=== PATIENT | female | born 1970 | race Caucasian/White ===

== ENCOUNTER 2020-08-21 05:41 | Emergency (ER) | payer OTHER, SELFPAY ==
--- NOTE | ~2020-08-21 | XR_ITS ---
EXAMINATION: XR BILATERAL ANKLES: 3 VIEWS EACH CLINICAL INFORMATION: Bilateral ankle pain COMPARISON: Right ankle radiographs dated 05/03/2014 TECHNIQUE: AP, oblique and lateral views of each ankle FINDINGS: No acute fracture or dislocation. Ankle mortise is congruent. Talar dome intact. Small bilateral plantar calcaneal and Achilles tendon enthesophytes. No ankle joint effusion. XR/XR ankle LT min 3V IMPRESSION: No acute fracture or dislocation.
--- NOTE | ~2020-08-21 | XR_ITS ---
EXAMINATION: XR BILATERAL ANKLES: 3 VIEWS EACH CLINICAL INFORMATION: Bilateral ankle pain COMPARISON: Right ankle radiographs dated 05/03/2014 TECHNIQUE: AP, oblique and lateral views of each ankle FINDINGS: No acute fracture or dislocation. Ankle mortise is congruent. Talar dome intact. Small bilateral plantar calcaneal and Achilles tendon enthesophytes. No ankle joint effusion. XR/XR ankle RT min 3V IMPRESSION: No acute fracture or dislocation.
[2020-08-21 05:50] VITALS: BP 149/78; PULSE 89; RESP 16; TEMP 37; O2SAT 95; BMI 31.1
--- NOTE | 2020-08-21 06:52 | ED.EXTPRO ---
HPI - Extremity Problem General Chief complaint: Extremity Problem Stated complaint: ankle pain Time Seen by Provider: 08/21/20 06:52 Source: patient and police Mode of arrival: ambulatory Limitations: no limitations History of Present Illness HPI Narrative: 49-year-old female brought in by the police for evaluation of bilateral ankle pain. 49-year-old female under police custody came in for evaluation of ankle pain, no reported trauma to the ankle, patient stated that pain has been there for a while, pain is mostly in the ankle area with some pain at the plantar service bilateral foot. shoot up to both lower legs, no specific reason for patient's symptoms. Patient declined trauma, no fever, no chills. Related Data Allergies Allergy/AdvReac Type Severity Reaction Status Date / Time No Known Allergies Allergy Verified 08/21/20 05:57 Review of Systems Review of Systems: All other systems are reviewed and are negative Constitutional: Reports as per HPI and Reports no additional constitutional complaints Eyes: Reports as per HPI and Reports no additional eye complaints Reports system reviewed and no additional complaints, except as documented Cardiovascular: Reports as per HPI and Reports no additional cardiovascular complaints Respiratory: Reports as per HPI and Reports no additional respiratory complaints Gastrointestinal: Reports as per HPI and Reports no additional gastrointestinal complaints Genitourinary: Reports no additional female genitourinary complaints Musculoskeletal: Reports no additional musculoskeletal complaints Skin/Breast: Reports system reviewed and no additional complaints, except as docu Psychiatric: Reports no additional psychiatric complaints Endocrine: Reports no additional endocrine complaints Hematologic/Lymphatic: Reports no additional hematologic/lymphatic complaints Allergic/Immunologic: Reports no additional allergic/immunologic complaints Reports system reviewed and no additional complaints, except as documented and Reports Abnormal speech present [facility] Social History Social History Advance Directives: No Advance Directives Information Provided: No Patient : No Physical Exam Vital Signs: Vital Signs: Last Vital Signs Temp 98.6 F 08/21/20 05:50 Pulse 89 08/21/20 05:50 Resp 16 08/21/20 05:50 BP 149/78 H 08/21/20 05:50 Pulse Ox 95 08/21/20 05:50 Body Mass Index 31.1 Vital signs have been reviewed as appeared to be correct. Blood pressure normal. Heart rate normal. Respiration rate normal. Temperature normal. Oxygen saturation normal. Appearance: Alert. Oriented X3. No acute distress. Head: Normal external exam. Normocephalic. Atraumatic. No Calderon signs noted. No raccoon eyes noted Eyes: PERRLA. EOMI. Conjunctiva and sclera normal. Eyelids normal. ENT: TM's Normal. Pharynx normal. Uvula midline. Moist mucous membranes. No trismus noted. No drooling noted. No muffled voice noted. Neck: Normal inspection. Neck supple. FROM. No adenopathy. Thyroid Normal. No meningeal signs. No neck mass noted. CVS: Normal heart rate and rhythm. Heart sound normal. No murmurs noted. Pulses normal throughout. Respiratory: No respiratory distress. Painless inspiration. Breath sounds normal. No wheezes/rales/rhonchi noted. Chest nontender. No accessory muscle usage noted or decreased air movement noted. Abdomen: Soft and nontender. Bowel sounds normal in all 4 quadrants. No distention noted. No organomegaly noted. No visible injury noted. Back: No CVA tenderness. Full range of motion noted. Skin: Skin warm and dry. Normal skin color. Normal skin turgor. No rashes/lesions/lacerations noted. Extremities: No lower extremity edema. Extremities exhibit normal range of motion. Extremities nontender. No deformities in particular in both ankles, patient was able to ambulate with steady gait. No pain or tenderness on the plantar fascia Neuro: Oriented X 3. No motor deficit. No sensory deficit. Reflexes normal. Course Course Course Narrative: 49-year-old female came in with nonspecific bilateral ankle pain for few days, no documented trauma or injury to the ankle, negative radiographic study. Patient is able to ambulate in the emergency department. MDM - Extremity (Nontraumatic) Imaging Data Right ankle x-ray: Radiologist's impression: No acute fracture or dislocation. Discharge Plan Discharge Clinical Impression: Ankle pain, chronic Qualifiers: Laterality: bilateral Qualified Code(s): M25.571 - Pain in right ankle and joints of right foot Patient Disposition: Home, Self-Care Instructions: Arthralgia (ED) Referrals: Physician,Unknown [Primary Care Provider] - 2 days Interventions: ED Discharge Assessment Last Done: 08/21/20 07:06 Discharge Date/Time: 08/21/20 07:07
== END 2020-08-21 07:07 | disposition home or self-care (01) ==
PROVIDERS: Emergency Provider Emergency Medicine
DX: M25.571 Pain in right ankle and joints of right foot (principal); M25.572 Pain in left ankle and joints of left foot
CPT/HCPCS: 73610; 99283

== ENCOUNTER 2020-08-22 01:40 | Emergency (ER) | payer OTHER, SELFPAY ==
[2020-08-22] VITALS (8 sets, daily range): BP systolic 123–142; BP diastolic 69–94; PULSE 66–89; RESP 14–18; TEMP 36.2–37.1; O2SAT 96–100; BMI 30.2
--- NOTE | 2020-08-22 02:26 | ED_ITS ---
HPI - General Adult General Chief complaint: General Medical Stated complaint: WITHDRAWAL,USUALLY SNORTS 4 BAGS OF HEROIN S DAY Time Seen by Provider: 08/22/20 02:25 Source: EMS Mode of arrival: EMS Limitations: no limitations History of Present Illness HPI narrative: Patient comes to emergency room reporting opiate withdrawal. Patient states that she snorts 4 bags of heroin daily. However, patient reports that she has not used in 24 hours. Patient complaining of feeling restless. Patient denies abdominal pain, no nausea vomiting. Patient states that she is trying to stop using heroin. Related Data Allergies Allergy/AdvReac Type Severity Reaction Status Date / Time No Known Allergies Allergy Verified 08/21/20 05:57 Review of Systems Review of Systems: Constitutional : No Weight loss, No Fever, No Chills, complaining of general malaise, feels like she is withdrawing from opiates ENT/Mouth : No Hearing loss, No Ear Pain, No Nasal Congestion, No Sinus Pain, No Hoarseness, No sore throat, No Rhinorrhea, No Swallowing Difficulty Eyes: No Eye Pain, No Swelling, No Redness, No Foreign Body, No Discharge, No Vision Changes Cardiovascular : No Chest Pain, No SOB, No Dyspnea on Exertion, No Orthopnea, No Edema, No Palpitations Respiratory : No Cough, No Sputum, No Wheezing, No Smoke Exposure, No Dyspnea Gastrointestinal : No Nausea, No Vomiting, No Diarrhea, No Constipation, No abdominal Pain, No Hematochezia, No Melena Genitourinary : no irregular bleeding, No Dysuria, No Urinary Frequency, No Hematuria, No Urinary Incontinence, No Urgency, No Flank Pain, No Urinary Flow Changes, No Hesitancy Musculoskeletal : No joint pain, No Myalgias, No Joint Swelling Skin : No Skin Lesions, No rash Neuro : No Weakness, No Numbness, No Paresthesias, No Loss of Consciousness, No Dizziness, No Headache Psych : No Anxiety/Panic, No Depression, No SI/HI/AH/VH, No Social Issues, Heme/Lymph: No Bruising, No Bleeding,No Lymphadenopathy Endocrine : No Polyuria, No Polydipsia, No Temperature Intolerance PMF Past Medical History Medical History (Updated 08/22/20 @ 06:35 by Allison Suárez MD) Substance abuse Social History Social History Advance Directives: No Advance Directives Information Provided: No Patient : No Physical Exam Vital Signs: Vital Signs: Last Vital Signs Temp 98.6 F 08/22/20 01:53 Pulse 72 08/22/20 02:35 Resp 16 08/22/20 03:38 BP 128/84 08/22/20 02:35 Pulse Ox 96 08/22/20 01:53 Body Mass Index 30.2 Appearance: Alert. Oriented X3. Looks uncomfortable Eyes: Pupils equal, round and reactive to light. ENT: Pharynx normal. Neck: Normal inspection. Neck supple. No lymph nodes noted. No crepitus CVS: Normal heart rate and rhythm. Pulses normal. Normal S1 and S2 Respiratory: No respiratory distress. Breath sounds normal. No Wheezing. No rales Abdomen: Soft and nontender. No rigidity. No distention. good BS x4 Skin: Skin warm and dry. Patient has a 5 cm x 5 cm old scab ulcer in the right forearm. Extremities: No lower extremity edema. No lower extremity edema. No Lacerations. No Rash Neuro: Oriented X 3. No motor deficit. No sensory deficit. Moving all extermities. No slurred speech. Course Course Course Narrative: I discussed with the patient if she is interested in using Suboxone so I could start her here. Patient states that she has tried in the past, did not work, she has no interest at this time. I discussed the large ulcer in the patient's forearm, states that it has been present for over 2 years. States she has not been seen by the wound clinic in approximately 6 months. At this time, infection is not suspected, however she would benefit from wound care. Patient had a very rough 9, constantly screaming. Patient was given trazodone and 4 mg of Ativan throughout the night. Now resting comfortably. Patient will likely benefit from a cross country and track and field coach evaluation. Sign-out given to Dr. Guerrero Medical Decision Making Lab Data Labs: Lab Results 08/22/20 08/22/20 08/22/20 Range/Units 03:01 03:01 03:01 Urine Color YELLOW Urine Appearance CLOUDY Urine pH 8.0 (5.0-8.0) Ur Specific [place] 1.025 (1.005-1.025) Urine Protein NEG (NEG-TRACE) MG/DL Urine Glucose (UA) NEG (NEG) MG/DL Urine Ketones 15 (NEG) MG/DL Urine Blood NEG (NEG) Urine Nitrite NEG (NEG) Ur Leukocyte Esterase NEG (NEG) Urine Test NEGATIVE (NEGATIVE) Urine Opiates Screen POSITIVE H (Not Detect) Ur Barbiturates Screen Not Detected (Not Detect) Ur Phencyclidine Scrn Not Detected (Not Detect) Ur Amphetamines Screen Not Detected (Not Detect) U Benzodiazepines Scrn Not Detected (Not Detect) Urine Cocaine Screen POSITIVE H (Not Detect) U Marijuana (THC) Screen Not Detected (Not Detect) Discharge Plan Discharge Clinical Impression: Opiate withdrawal Arm ulcer Qualifiers: Non-pressure ulcer stage: unspecified non-pressure ulcer stage Qualified Code(s): L98.499 - Non-pressure chronic ulcer of skin of other sites with unspecified severity Referrals: Abbie Duncan MD [Physician] - 2 days (Unhealed right forearm ulcer)
[2020-08-22] MEDS: cloNIDine HCL 0.2 MG TABLET PO (02:35)
[2020-08-22] MEDS: Loperamide HCl 2 MG CAPSULE 4 MG PO (02:35)
[2020-08-22] MEDS: LORazepam 1 MG TABLET 2 MG PO ×2 (02:35→03:36)
--- NOTE | 2020-08-22 02:37 | PC.NURSE ---
pt medicated per MAR. Pt continues to be restless and thrash around in the bed. Yelling out is becoming more constant/consisitant. pt reports she cannot get comfortable and inquired as to how long it will take before the medication begins to work; pt aware of the 30minutes time frame and she verbalized understanding. Pillow given for comfort.
[2020-08-22 03:08] LABS: Glucose Urine UA NEG (NEG); Leukocyte Esterase Urine NEG (NEG); Nitrite Urine NEG (NEG); Specific Gravity - Urine 1.025 (1.005-1.025); Urine Blood NEG (NEG); Urine Ketones 15 MG/DL (NEG); Urine Protein NEG (NEG-TRACE)
[2020-08-22 03:10] LABS: Appearance Urine CLOUDY; Color Urine YELLOW
[2020-08-22 03:11] LABS: UPreg QC Valid YES; Urine Pregnancy NEGATIVE (NEGATIVE)
[2020-08-22] MEDS: traZODone HCL 100 MG TABLET PO (03:36)
[2020-08-22 03:38] LABS: Amphetamine Screen Urine Not Detected (Not Detect); Barbiturates, Urine Not Detected (Not Detect); Benzodiazepines Screen Urine Not Detected (Not Detect); Cannabinoid Screen Urine Not Detected (Not Detect); Cocaine Screen Urine POSITIVE (Not Detect); Opiate Screen Urine POSITIVE (Not Detect); Phencyclidine Screen Urine Not Detected (Not Detect)
--- NOTE | 2020-08-22 11:01 | MHC.RECOVSUP ---
Recovery Support note: Patient is a 49 year old [place]i speaking female who presented to [facility] ED due to opioid withdrawal symptoms. Per EMR, patient was offered Suboxone and declined, stating that she has tried it before but she is not interested. This financial underwriter has attempted to meet with patient on multiple occasions throughout the morning. Patient appears comfortable and has been sleeping heavily, difficult to arouse. This financial underwriter or a Sole Conforming Machine Operator will check in with patient when she is more awake to determine if patient is interested in any resources or supports.
--- NOTE | 2020-08-22 12:31 | MHC.RECOVSUP ---
? Reason for consult:Continuity o Current location: ED [address] o Identified substance use concern:Heroin - Support ? Intervention: o Community resources provided o Harm reduction discussion ? Plan: o Referral to [facility] o Bed search in progress to o Follow up tomorrow o Patient awaiting crisis evaluation o Patient to follow up with [facility] after discharge ? Additional information: Pt. still asleep. Will continue to try to speak with patient till end of shift.
--- NOTE | 2020-08-22 14:15 | MHC.RECOVSUP ---
? Reason for consult:Continuity of care o Current location: [facility] o Identified substance use concern: Heroin - Withdrawal - Seeking ATS (detox) - Support ? Intervention: o ATS bed search started/completed/in process o Community resources provided o Harm reduction discussion ? Plan: o Bed search in progress to o Patient to follow up with [facility] after discharge ? Additional information: Pt. willing to go anywhere for detox and prison recovery. patient referred to [facility]. She's been put on the waiting list on the latter. Nurse Mariscal notified.
--- NOTE | 2020-08-22 14:26 | PC.NURSE ---
pt ate 75% of lunch, pt had refused breakfast, slept most of the morning. resp even and unlabored.
--- NOTE | 2020-08-22 14:27 | PC.NURSE ---
plan for detox per care team., pt aware of plan of care.
--- NOTE | 2020-08-22 14:35 | MHC.RECOVSUP ---
Recovery Support note: Patient met with [employer] Pot[employer] Arranger and expressed interest in going to detox. This automobile and property underwriter will conduct a detox bedsearch for patient.
== END 2020-08-22 18:20 | disposition home or self-care (01) ==
PROVIDERS: Emergency Provider Emergency Medicine
DX: F11.13 Opioid abuse with withdrawal (principal); F19.10 Other psychoactive substance abuse, uncomplicated; R45.1 Restlessness and agitation; L98.499 Non-pressure chronic ulcer of skin of other sites with unspecified severity
CPT/HCPCS: 80307; 81003; 81025; 99284; 99285

== ENCOUNTER 2020-08-27 11:46 | Inpatient (IN) | payer OTHER, SELFPAY ==
[2020-08-27] VITALS (9 sets, daily range): BP systolic 104–139; BP diastolic 61–91; PULSE 77–108; RESP 16–18; TEMP 36–36.9; O2SAT 96–100; BMI 29.2
--- NOTE | ~2020-08-27 | CT_ITS ---
EXAMINATION: CONTRAST-ENHANCED CT OF THE CHEST; CONTRAST-ENHANCED CT OF THE ABDOMEN AND PELVIS INDICATION: Cough, leukocytosis, abdominal pain, IVDA COMPARISON: None TECHNIQUE: 85 mL Omnipaque 350 IV contrast was utilized. Multidetector helical imaging was performed through the chest, abdomen, and pelvis. Coronal and sagittal reformatted images were created at the technologist workstation. DLP: 1252 mGy-cm DOSE LOWERING TECHNIQUES: This CT examination was performed using dose optimization techniques as appropriate, variously including the following: - Automated exposure control - Adjustment of mA and/or kV according to patient size (this includes techniques or standardized protocols for targeted exams were dose is matched to indication/reason for exam; i.e. extremities or head) - Use of iterative reconstruction technique FINDINGS: Chest: Limited assessment of the lung parenchyma due to respiratory motion artifact. No appreciable consolidation. No pneumothorax or pleural effusion. Small left thyroid lobe nodule is noted. There are subcentimeter mediastinal lymph nodes within the range of normal variation. Cardiac size is within normal limits; no pericardial effusion. The aorta is unremarkable. There is a mildly prominent right axillary lymph node, nonspecific. Abdomen/Pelvis: Limited evaluation due to patient motion artifact. The liver is homogeneous in attenuation without intrahepatic biliary ductal dilatation. Patient is status post cholecystectomy. The spleen, pancreas, and adrenal glands are within normal limits. Bilateral nephrograms are symmetric. No hydronephrosis. No obstructing renal or ureteral calculi are present. Tiny mid to lower right renal calculi noted. The urinary bladder is unremarkable. The uterus and adnexa are unremarkable. The small and large bowel are unremarkable without evidence of obstruction or pericolonic inflammatory change. Appendix appears nondilated. No free fluid or free air is identified. The vascular structures are unremarkable. No retroperitoneal or pelvic lymphadenopathy is seen. There are degenerative endplate changes in the upper lumbar spine. CT/CT abdomen pelvis w con IMPRESSION: 1. Suboptimal assessment due to patient motion artifact. No definite acute findings identified in the chest, abdomen, or pelvis. 2. Mildly prominent right axillary lymph node, nonspecific. Correlation with screening mammography is recommended. 3. Tiny right renal calculi without hydronephrosis.
--- NOTE | ~2020-08-27 | CT_ITS ---
EXAMINATION: CT HEAD WITHOUT CONTRAST CLINICAL INFORMATION: Altered mental status, leukocytosis COMPARISON: None TECHNIQUE: Contiguous axial imaging was performed from the skull base to vertex without intravenous administration of contrast. This CT examination was performed using dose optimization techniques as appropriate, variously including the following: *Automated exposure control *Adjustment of mA and/or kV according to patient size (this includes techniques or standardized protocols for targeted exams where dose is matched to indication/reason for exam; i.e. extremities or head) *Use of iterative reconstruction technique DLP: 1309 mGy-cm FINDINGS: There is no evidence of acute intracranial hemorrhage or territorial infarction. No abnormal mass effect or midline shift is seen. Seaman to white matter differentiation is well preserved. No extra-axial fluid collections are identified. The ventricles are normal in size. Cystic region along the right cerebellopontine angle may represent an epidermoid cyst or arachnoid cyst. The osseous structures and soft tissues are normal. The mastoid air cells and visualized portions of the paranasal sinuses are well aerated. CT/CT head/brain wo con IMPRESSION: No acute intracranial pathology.
--- NOTE | ~2020-08-27 | XR_ITS ---
EXAMINATION: XR CHEST CLINICAL INFORMATION: Shortness of breath. Leukocytosis. COMPARISON: None TECHNIQUE: Frontal view of the chest was obtained. FINDINGS: No significant abnormality is noted involving the heart, lungs, mediastinum, bony thorax or soft tissues. XR/XR chest 1V IMPRESSION: Unremarkable examination.
--- NOTE | 2020-08-27 12:13 | PC.NURSE ---
patient reports she is interested in detox, no oil recovery operator here at this time but Bailee from [facility] team is aware and will work on detox services.
--- NOTE | 2020-08-27 12:17 | ED_ITS ---
HPI - General Adult General Chief complaint: General Medical Stated complaint: heroin withdrawal Time Seen by Provider: 08/27/20 12:16 Source: patient and EMS Mode of arrival: EMS Limitations: no limitations History of Present Illness HPI narrative: 49 y/o female with history of polysubstance abuse, including heroin and crack, previously on Methadone who presents to the ER via EMS with reports of heroin withdrawal. She reports using 12/2 bundle per day. Last use was 12pm yesterday. She comes in today reporting feeling awful. She feels like she is going to . She states this is the worst withdrawal she has ever experienced. She has numbness in her hands, abdominal pain, chest pain, shortness of breath, anxiety. She reports last taking her Methadone a few weeks ago. Her car broke and she has not been able to get to the clinic so she started using again. She snorts her heroin. She was seen here on 08/22 for withdrawal symptoms as well. She wanted to go to detox but there were no beds available so she was discharged with plan to go [facility]. She denies ever going. complaint: heroin withdrawal Onset (ago): day(s) Location: head, chest and abdomen Radiation: non-radiation Severity: severe Quality: aching Pain Consistency: constant Relieving factors: none Exacerbating factors: none Associated symptoms: chest pain, headaches, loss of appetite, nausea/vomiting, shortness of breath and weakness Treatments prior to arrival: none Related Data Allergies Allergy/AdvReac Type Severity Reaction Status Date / Time No Known Allergies Allergy Verified 08/21/20 05:57 Review of Systems Review of Systems: Constitutional: No Fever, No Chills ENT/Mouth: No sore throat, No Rhinorrhea, No Swallowing Difficulty Eyes: No Eye Pain, No Swelling, No Redness Cardiovascular: + Chest Pain, + SOB, No Orthopnea, No Edema Respiratory: No Cough, No Sputum, No Wheezing, No dyspnea Gastrointestinal: + Nausea, No Vomiting, No Diarrhea, + abdominal Pain, No Hematochezia, No Melena Genitourinary: No Dysuria, No Urinary Frequency, No Hematuria Musculoskeletal: + joint pain, + Myalgias Skin: No Skin Lesions, No rash Neuro: + Weakness, + Numbness, No Dizziness, + Headache Psych: + Anxiety/Panic, + Depression Heme/Lymph: No Bruising, No Lymphadenopathy Endocrine: No Polyuria, No Polydipsia PMF Past Medical History Attestation statement: The following information was validated with the patient. Medical History Substance abuse Social History Social History Alcohol intake: never Smoking Status: Current some day smoker Smoked in Last 30 Days: Yes Use of substances other than those prescribed or required for medical reasons: Yes Substance Use Type: Crack/Cocaine and Heroin Substance Use Frequency: Chronic Longstanding Last Used Substance: Days (ago) Any prior treatment program specific to substance use: Yes Advance Directives: No Advance Directives Information Provided: Yes Patient : No Physical Exam Vital Signs: Vital Signs: Last Vital Signs Temp 97.9 F 08/27/20 20:00 Pulse 88 08/27/20 20:00 Resp 16 08/27/20 20:00 BP 130/84 08/27/20 20:00 Pulse Ox 96 08/27/20 20:00 Body Mass Index 29.2 Appearance: Alert. Oriented X2. Restless in bed, shaking around. Eyes: Pupils equal, round and reactive to light. ENT: Pharynx normal. Neck: Normal inspection. Neck supple. CVS: Tachycardic, regular rhythm. Pulses normal. No appreciable murmur Respiratory: No respiratory distress. Breath sounds normal. Abdomen: Soft and nontender. +BS x4 Skin: Skin warm and dry. Normal skin color. Normal skin turgor. No rashes. Extremities: No lower extremity edema. LUE with chronic skin ulcer, pink healthy tissue at margins without tenderness, warmth or drainage. bilateral hands with multiple track delgadillo in various stages of healing. Neuro: Oriented X 3 (person, place, situation, confused to specific date), moves all extremities, restless, no focal deficits. answers questions appropriately Course Course Course Narrative: 49 y/o female with longstanding polysubstance abuse presenting with heroin withdrawal, last use 24 hours ago. Unable to confirm her prior Methadone dosing, clinic is closed. She is agreeable to starting Suboxone. She is interested in detox. She has not had basic lab workup in 2 years. Given her myriad of complaints will get basic workup and discuss referrals to detox with value stream coach. Reevaluation(s) Reevaluation #1: Took multiple attempts to draw blood, poor access and patient not cooperating - labs returned with WBC 25.9K w/ left shift & K 2.9. UA negative. COVID negative. Will get CXR, lactic acid and blood cultures. Patient remains afebrile. She is altered with intermittent shouting out (received subox one, ativan, clonidine and hydroxazine for withdrawal sxs) but is conversant and answers questions appropriately. No nuchal rigidity. Doubt meningitis or encephalitis, however if no source is identified may need to proceed with LP for further investigation. Will panscan to look for source of infection. Repeat WBC to verify not a lab error. Reevaluation #2: Lactic acid 3.0. Unable to establish IV access despite multiple attempts by multiple providers. She is hemodynamically stable and afebrile. She is tolerating PO fluids, will continue to encourage PO hydration and repeat lactic acid. No source is identified at this time. CT scans are pending, unable to be completed due to agitation and being uncooperative. IM haldol ordered. IV access being attempted again. Signed out to Dr. Villeda who will f/u repeat labs & CT scans. IVF ordered. Medical Decision Making Lab Data Result diagrams: 08/27/20 15:20 08/27/20 15:20 Labs: Lab Results 08/27/20 08/27/20 08/27/20 Range/Units 13:23 13:23 13:23 WBC (4.8-10.8) X10*3/uL RBC (4.20-5.50) X10*6/uL Hgb (12.0-16.0) g/dl Hct (37-47) % MCV (80-98) fL MCH (27.0-33.0) pg MCHC (31.0-35.0) g/dl RDW (11.0-16.0) % Plt Count (160-400) X10*3/uL MPV (9.4-12.3) fL Immature Gran % (Auto) (0.0-0.4) % Neut % (Auto) (45-73) % Lymph % (Auto) (20-40) % [place] % (Auto) (2-11) % Eos % (Auto) (0-4) % Baso % (Auto) (0-2) % Lymph # (Auto) (1.2-4.9) X10*3/uL [place] # (Auto) (0.1-1.2) X10*3/uL Eos # (Auto) (0.0-0.4) X10*3/uL Baso # (Auto) (0.0-0.2) X10*3/uL Abs Immat Gran (auto) (0.00-0.03) X10*3/uL Absolute Neuts (auto) (2.0-8.3) X10*3/uL Absolute Nucleated RBC (0.0-0.012) X10*3/uL Nucleated RBC % (auto) (0.0-0.2) /100WBC Smear Tech's Comments Hold Blue Top Sodium (135-145) mmol/L Potassium (3.3-5.1) mmol/L Chloride (96-108) mmol/L Carbon Dioxide (22-29) mmol/L Anion Gap (12-20) BUN (9-16) mg/dL Creatinine (0.5-1.4) mg/dL Estim Creat Clear Calc Estimated GFR Random Glucose (60-115) mg/dL Lactic Acid (0.5-2.0) mmol/L Calcium (8.4-10.2) mg/dL Magnesium (1.6-2.6) mg/dL Total Bilirubin (0.0-1.0) mg/dL Direct Bilirubin (0.0-0.5) mg/dL AST (5-31) U/L ALT (0-31) U/L Alkaline Phosphatase (39-117) U/L Total Protein (6.5-8.0) g/dL Albumin (3.5-5.0) g/dL Urine Color YELLOW Urine Appearance CLEAR Urine pH 7.0 (5.0-8.0) Ur Specific [place] 1.010 (1.005-1.025) Urine Protein 1+ H (NEG-TRACE) MG/DL Urine Glucose (UA) NEG (NEG) MG/DL Urine Ketones NEG (NEG) MG/DL Urine Blood NEG (NEG) Urine Nitrite NEG (NEG) Ur Leukocyte Esterase NEG (NEG) Urine RBC 0-2 (0) /HPF Urine WBC 0-2 (0-4) /HPF Ur Squamous Epith Cells 1+ /LPF Ur Renal Epithelial Cell 1+ /LPF Urine Bacteria NONE /LPF Urine Opiates Screen POSITIVE H (Not Detect) Ur Barbiturates Screen Not Detected (Not Detect) Ur Phencyclidine Scrn Not Detected (Not Detect) Ur Amphetamines Screen Not Detected (Not Detect) U Benzodiazepines Scrn Not Detected (Not Detect) Urine Cocaine Screen POSITIVE H (Not Detect) U Marijuana (THC) Screen Not Detected (Not Detect) Ethyl Alcohol mg/dL COVID-19 ([facility]ARJIT) Negative (Negative) COVID-19 Clin Com See Note 08/27/20 08/27/20 08/27/20 Range/Units 15:20 15:20 15:20 WBC 25.9 H (4.8-10.8) X10*3/uL RBC 4.00 L (4.20-5.50) X10*6/uL Hgb 10.1 L (12.0-16.0) g/dl Hct 32.2 L (37-47) % MCV 80.5 (80-98) fL MCH 25.3 L (27.0-33.0) pg MCHC 31.4 (31.0-35.0) g/dl RDW 16.1 H (11.0-16.0) % Plt Count 330 (160-400) X10*3/uL MPV 10.2 (9.4-12.3) fL Immature Gran % (Auto) 0.5 H (0.0-0.4) % Neut % (Auto) 96.9 H (45-73) % Lymph % (Auto) 1.4 L (20-40) % [place] % (Auto) 1.0 L (2-11) % Eos % (Auto) 0.0 (0-4) % Baso % (Auto) 0.2 (0-2) % Lymph # (Auto) 0.4 L (1.2-4.9) X10*3/uL [place] # (Auto) 0.3 (0.1-1.2) X10*3/uL Eos # (Auto) 0.0 (0.0-0.4) X10*3/uL Baso # (Auto) 0.0 (0.0-0.2) X10*3/uL Abs Immat Gran (auto) 0.13 H (0.00-0.03) X10*3/uL Absolute Neuts (auto) 25.1 H (2.0-8.3) X10*3/uL Absolute Nucleated RBC 0.000 (0.0-0.012) X10*3/uL Nucleated RBC % (auto) 0.0 (0.0-0.2) /100WBC Smear Tech's Comments VERIFIED Hold Blue Top SEE NOTE Sodium 140 (135-145) mmol/L Potassium 2.9 L (3.3-5.1) mmol/L Chloride 106 (96-108) mmol/L Carbon Dioxide 22 (22-29) mmol/L Anion Gap 15 (12-20) BUN 9 (9-16) mg/dL Creatinine 0.73 (0.5-1.4) mg/dL Estim Creat Clear Calc 85.4 Estimated GFR > 60 Random Glucose 116 H (60-115) mg/dL Lactic Acid (0.5-2.0) mmol/L Calcium 8.4 (8.4-10.2) mg/dL Magnesium 1.7 (1.6-2.6) mg/dL Total Bilirubin 0.8 (0.0-1.0) mg/dL Direct Bilirubin 0.3 (0.0-0.5) mg/dL AST 97 H (5-31) U/L ALT 48 H (0-31) U/L Alkaline Phosphatase 126 H (39-117) U/L Total Protein 6.7 (6.5-8.0) g/dL Albumin 3.4 L (3.5-5.0) g/dL Urine Color Urine Appearance Urine pH (5.0-8.0) Ur Specific [place] (1.005-1.025) Urine Protein (NEG-TRACE) MG/DL Urine Glucose (UA) (NEG) MG/DL Urine Ketones (NEG) MG/DL Urine Blood (NEG) Urine Nitrite (NEG) Ur Leukocyte Esterase (NEG) Urine RBC (0) /HPF Urine WBC (0-4) /HPF Ur Squamous Epith Cells /LPF Ur Renal Epithelial Cell /LPF Urine Bacteria /LPF Urine Opiates Screen (Not Detect) Ur Barbiturates Screen (Not Detect) Ur Phencyclidine Scrn (Not Detect) Ur Amphetamines Screen (Not Detect) U Benzodiazepines Scrn (Not Detect) Urine Cocaine Screen (Not Detect) U Marijuana (THC) Screen (Not Detect) Ethyl Alcohol mg/dL COVID-19 ([facility]ARJIT) (Negative) COVID-19 Clin Com 08/27/20 08/27/20 Range/Units 15:20 19:10 WBC (4.8-10.8) X10*3/uL RBC (4.20-5.50) X10*6/uL Hgb (12.0-16.0) g/dl Hct (37-47) % MCV (80-98) fL MCH (27.0-33.0) pg MCHC (31.0-35.0) g/dl RDW (11.0-16.0) % Plt Count (160-400) X10*3/uL MPV (9.4-12.3) fL Immature Gran % (Auto) (0.0-0.4) % Neut % (Auto) (45-73) % Lymph % (Auto) (20-40) % [place] % (Auto) (2-11) % Eos % (Auto) (0-4) % Baso % (Auto) (0-2) % Lymph # (Auto) (1.2-4.9) X10*3/uL [place] # (Auto) (0.1-1.2) X10*3/uL Eos # (Auto) (0.0-0.4) X10*3/uL Baso # (Auto) (0.0-0.2) X10*3/uL Abs Immat Gran (auto) (0.00-0.03) X10*3/uL Absolute Neuts (auto) (2.0-8.3) X10*3/uL Absolute Nucleated RBC (0.0-0.012) X10*3/uL Nucleated RBC % (auto) (0.0-0.2) /100WBC Smear Tech's Comments Hold Blue Top Sodium (135-145) mmol/L Potassium (3.3-5.1) mmol/L Chloride (96-108) mmol/L Carbon Dioxide (22-29) mmol/L Anion Gap (12-20) BUN (9-16) mg/dL Creatinine (0.5-1.4) mg/dL Estim Creat Clear Calc Estimated GFR Random Glucose (60-115) mg/dL Lactic Acid 3.0 H* (0.5-2.0) mmol/L Calcium (8.4-10.2) mg/dL Magnesium (1.6-2.6) mg/dL Total Bilirubin (0.0-1.0) mg/dL Direct Bilirubin (0.0-0.5) mg/dL AST (5-31) U/L ALT (0-31) U/L Alkaline Phosphatase (39-117) U/L Total Protein (6.5-8.0) g/dL Albumin (3.5-5.0) g/dL Urine Color Urine Appearance Urine pH (5.0-8.0) Ur Specific [place] (1.005-1.025) Urine Protein (NEG-TRACE) MG/DL Urine Glucose (UA) (NEG) MG/DL Urine Ketones (NEG) MG/DL Urine Blood (NEG) Urine Nitrite (NEG) Ur Leukocyte Esterase (NEG) Urine RBC (0) /HPF Urine WBC (0-4) /HPF Ur Squamous Epith Cells /LPF Ur Renal Epithelial Cell /LPF Urine Bacteria /LPF Urine Opiates Screen (Not Detect) Ur Barbiturates Screen (Not Detect) Ur Phencyclidine Scrn (Not Detect) Ur Amphetamines Screen (Not Detect) U Benzodiazepines Scrn (Not Detect) Urine Cocaine Screen (Not Detect) U Marijuana (THC) Screen (Not Detect) Ethyl Alcohol < 10 mg/dL COVID-19 ([facility]ARJIT) (Negative) COVID-19 Clin Com ECG Data Attestation: I personally reviewed and interpreted this ECG as follows: Interpretation: normal sinus rhythm, nonspecific ST & T wave abnormality. normal IA interval, Normal QTc
[2020-08-27] MEDS: Buprenorphine/Naloxone 4/1 mg FILM 1 FILM SUBLINGUAL (12:25)
--- NOTE | 2020-08-27 12:34 | ECG_ITS ---
Test Reason : CHEST PAIN Blood Pressure : / mmHG Vent. Rate : 089 BPM Atrial Rate : 089 BPM P-R Int : 112 ms QRS Dur : 082 ms QT Int : 334 ms P-R-T Axes : 035 045 003 degrees QTc Int : 406 ms Normal sinus rhythm Nonspecific ST and T wave abnormality Abnormal ECG No previous ECGs available Referred By: Nallely Umanzor Electronically Signed By:JEAN CARLOS GARCIA MD
[2020-08-27] MEDS: LORazepam 1 MG TABLET 2 MG PO ×2 (13:32→17:50)
[2020-08-27] MEDS: cloNIDine HCL 0.1 MG TABLET PO ×2 (13:32→14:41)
[2020-08-27 13:36] LABS: Glucose Urine UA NEG (NEG); Leukocyte Esterase Urine NEG (NEG); Nitrite Urine NEG (NEG); Urine Blood NEG (NEG); Urine Ketones NEG (NEG); Urine Protein 1+ MG/DL (NEG-TRACE)
[2020-08-27 13:38] LABS: Appearance Urine CLEAR; Color Urine YELLOW
[2020-08-27 13:43] LABS: RBC Urine 0-2 /HPF (0); Renal Epithelial Cells Urine 1+ /LPF; Squamous Epithelial Cell Urine 1+ /LPF; WBC Urine 0-2 /HPF (0-4)
[2020-08-27 13:47] LABS: COVID-19 Test Negative (Negative); IDNOW Serial# 08D9AD1C
--- NOTE | 2020-08-27 13:50 | PC.NURSE ---
patient moving too much in bed at this time for tech to draw blood. patient medicated, will reassess for lab draws.
[2020-08-27 14:00] LABS: Amphetamine Screen Urine Not Detected (Not Detect); Barbiturates, Urine Not Detected (Not Detect); Benzodiazepines Screen Urine Not Detected (Not Detect); Cannabinoid Screen Urine Not Detected (Not Detect); Cocaine Screen Urine POSITIVE (Not Detect); Opiate Screen Urine POSITIVE (Not Detect); Phencyclidine Screen Urine Not Detected (Not Detect)
--- NOTE | 2020-08-27 14:43 | MHC.CARE ---
Pt interested in detox. Pt referred to detoxs. Placement pending.
[2020-08-27] MEDS: hydrOXYzine HCL 50 MG TABLET PO (14:54)
[2020-08-27 15:29] LABS: Basophils Percent Auto 0.2 % (0-2); Hematocrit 32.2 % (37-47); Hemoglobin 10.1 g/dl (12.0-16.0); Imm Gran Abs Auto 0.13 X10*3/uL (0.00-0.03); Imm Gran Pct Auto 0.5 % (0.0-0.4); Lymphocytes Absolute Auto 0.4 X10*3/uL (1.2-4.9); Lymphocytes Percent Auto 1.4 % (20-40); MANUAL DIFF FLAG SCAN; Mean Corpuscular HGB Conc 31.4 g/dl (31.0-35.0); Mean Corpuscular Hemoglobin 25.3 pg (27.0-33.0); Mean Corpuscular Volume 80.5 fL (80-98); Mean Platelet Volume 10.2 fL (9.4-12.3); Monocytes Absolute Auto 0.3 X10*3/uL (0.1-1.2); Neutrophils Absolute Auto 25.1 X10*3/uL (2.0-8.3); Neutrophils Percent Auto 96.9 % (45-73); Platelet Count 330 X10*3/uL (160-400); Red Cell Distribution Width 16.1 % (11.0-16.0); SCAN SMEAR FLAG 1; White Blood Count 25.9 X10*3/uL (4.8-10.8)
[2020-08-27 15:55] LABS: Ethanol < 10 mg/dL
[2020-08-27 15:59] LABS: SLIDE REVIEW VERIFIED
[2020-08-27 16:01] LABS: Alanine Aminotransferase 48 U/L (0-31); Albumin Level 3.4 g/dL (3.5-5.0); Alkaline Phosphatase 126 U/L (39-117); Anion Gap 15 (12-20); Aspartate Amino Transferase 97 U/L (5-31); Bilirubin Direct 0.3 mg/dL (0.0-0.5); Bilirubin Total 0.8 mg/dL (0.0-1.0); Blood Urea Nitrogen 9 mg/dL (9-16); Calcium 8.4 mg/dL (8.4-10.2); Carbon Dioxide 22 mmol/L (22-29); Chloride 106 mmol/L (96-108); Creatinine Clr Calc Pharmacy 85.4; Estimated Glomerular Filt Rate > 60; Glucose Random 116 mg/dL (60-115); Magnesium 1.7 mg/dL (1.6-2.6); Potassium 2.9 mmol/L (3.3-5.1); Sodium 140 mmol/L (135-145); Total Protein 6.7 g/dL (6.5-8.0)
[2020-08-27] MEDS: Potassium Chloride ER 20 MEQ TAB.ER.PRT 60 MEQ PO (17:09)
--- NOTE | 2020-08-27 18:18 | PC.NURSE ---
several attempts made by RNs, FRUIT BAR MAKER and DR to obtain access, no successes. pt went for scans without contrast. awaiting restults.
--- NOTE | 2020-08-27 19:05 | MHC.CARE ---
Detox bedsearch has been discontinued due to pt's high WBC. No facilities will consider accepting pt given this.
[2020-08-27 21:16] LABS: Reflex Lactate? Lactic Acid Added
[2020-08-27 21:23] LABS: Basophils Absolute Auto 0.1 X10*3/uL (0.0-0.2); Basophils Percent Auto 0.2 % (0-2); Hematocrit 31.1 % (37-47); Hemoglobin 9.7 g/dl (12.0-16.0); Imm Gran Abs Auto 0.27 X10*3/uL (0.00-0.03); Imm Gran Pct Auto 0.8 % (0.0-0.4); Lymphocytes Absolute Auto 1.5 X10*3/uL (1.2-4.9); Lymphocytes Percent Auto 4.2 % (20-40); MANUAL DIFF FLAG SCAN; Mean Corpuscular HGB Conc 31.2 g/dl (31.0-35.0); Mean Corpuscular Hemoglobin 24.9 pg (27.0-33.0); Mean Corpuscular Volume 79.9 fL (80-98); Monocytes Percent Auto 2.9 % (2-11); Neutrophils Percent Auto 91.9 % (45-73); Platelet Count 351 X10*3/uL (160-400); Red Blood Count 3.89 X10*6/uL (4.20-5.50); Red Cell Distribution Width 16.3 % (11.0-16.0); SCAN SMEAR FLAG 1
[2020-08-27 21:26] LABS: White Blood Count 34.8 X10*3/uL (4.8-10.8)
[2020-08-27] MEDS: Haloperidol Lactate 5 MG/ML VIAL IM (22:04)
--- NOTE | 2020-08-27 22:11 | PC.NURSE ---
PT MEDICATED WITH HALDOL IM PER EMAR. ATTEMPTING TO PUT AN IV IN, PT IS A VERY DIFFICULT STICK TO OBTAIN BLOOD.
--- NOTE | 2020-08-27 23:05 | PC.NURSE ---
still unable to get an IV in pt. Will try again after pt calms down. pt continues to move about in bed w/o relaxing. Pt alert, respirations easy, n/l. skin w/d.
[2020-08-28] VITALS (7 sets, daily range): BP systolic 104–144; BP diastolic 54–92; PULSE 71–90; RESP 16–20; TEMP 36.6–36.9; O2SAT 97–100; BMI 30.8
--- NOTE | 2020-08-28 00:40 | ED_ITS ---
HPI - General Adult General Chief complaint: General Medical Stated complaint: heroin withdrawal Time Seen by Provider: 08/27/20 12:16 Source: patient and EMS Mode of arrival: EMS Limitations: no limitations History of Present Illness Location: head, chest and abdomen Quality: aching Relieving factors: none Exacerbating factors: none Associated symptoms: chest pain, headaches, loss of appetite, nausea/vomiting, shortness of breath and weakness Treatments prior to arrival: none Related Data Allergies Allergy/AdvReac Type Severity Reaction Status Date / Time No Known Allergies Allergy Verified 08/21/20 05:57 [facility] Past Medical History Medical History Substance abuse Social History Social History Alcohol intake: never Smoking Status: Current some day smoker Smoked in Last 30 Days: Yes Use of substances other than those prescribed or required for medical reasons: Yes Substance Use Type: Crack/Cocaine and Heroin Substance Use Frequency: Chronic Longstanding Last Used Substance: Days (ago) Any prior treatment program specific to substance use: Yes Advance Directives: No Advance Directives Information Provided: Yes Patient : No Physical Exam Vital Signs: Vital Signs: Last Vital Signs Temp 98.2 F 08/28/20 09:07 Pulse 80 08/28/20 09:07 Resp 16 08/28/20 09:07 BP 104/54 L 08/28/20 09:07 Pulse Ox 98 08/28/20 09:07 Body Mass Index 29.2 Medical Decision Making Lab Data Result diagrams: 08/27/20 21:09 08/27/20 15:20 Labs: Lab Results 08/27/20 08/27/20 08/27/20 Range/Units 13:23 13:23 13:23 WBC (4.8-10.8) X10*3/uL RBC (4.20-5.50) X10*6/uL Hgb (12.0-16.0) g/dl Hct (37-47) % MCV (80-98) fL MCH (27.0-33.0) pg MCHC (31.0-35.0) g/dl RDW (11.0-16.0) % Plt Count (160-400) X10*3/uL MPV (9.4-12.3) fL Immature Gran % (Auto) (0.0-0.4) % Neut % (Auto) (45-73) % Lymph % (Auto) (20-40) % [place] % (Auto) (2-11) % Eos % (Auto) (0-4) % Baso % (Auto) (0-2) % Lymph # (Auto) (1.2-4.9) X10*3/uL [place] # (Auto) (0.1-1.2) X10*3/uL Eos # (Auto) (0.0-0.4) X10*3/uL Baso # (Auto) (0.0-0.2) X10*3/uL Abs Immat Gran (auto) (0.00-0.03) X10*3/uL Absolute Neuts (auto) (2.0-8.3) X10*3/uL Absolute Nucleated RBC (0.0-0.012) X10*3/uL Nucleated RBC % (auto) (0.0-0.2) /100WBC Smear Tech's Comments Hold Blue Top Sodium (135-145) mmol/L Potassium (3.3-5.1) mmol/L Chloride (96-108) mmol/L Carbon Dioxide (22-29) mmol/L Anion Gap (12-20) BUN (9-16) mg/dL Creatinine (0.5-1.4) mg/dL Estim Creat Clear Calc Estimated GFR Random Glucose (60-115) mg/dL Lactic Acid (0.5-2.0) mmol/L Calcium (8.4-10.2) mg/dL Magnesium (1.6-2.6) mg/dL Total Bilirubin (0.0-1.0) mg/dL Direct Bilirubin (0.0-0.5) mg/dL AST (5-31) U/L ALT (0-31) U/L Alkaline Phosphatase (39-117) U/L Total Protein (6.5-8.0) g/dL Albumin (3.5-5.0) g/dL Urine Color YELLOW Urine Appearance CLEAR Urine pH 7.0 (5.0-8.0) Ur Specific [place] 1.010 (1.005-1.025) Urine Protein 1+ H (NEG-TRACE) MG/DL Urine Glucose (UA) NEG (NEG) MG/DL Urine Ketones NEG (NEG) MG/DL Urine Blood NEG (NEG) Urine Nitrite NEG (NEG) Ur Leukocyte Esterase NEG (NEG) Urine RBC 0-2 (0) /HPF Urine WBC 0-2 (0-4) /HPF Ur Squamous Epith Cells 1+ /LPF Ur Renal Epithelial Cell 1+ /LPF Urine Bacteria NONE /LPF Urine Opiates Screen POSITIVE H (Not Detect) Ur Barbiturates Screen Not Detected (Not Detect) Ur Phencyclidine Scrn Not Detected (Not Detect) Ur Amphetamines Screen Not Detected (Not Detect) U Benzodiazepines Scrn Not Detected (Not Detect) Urine Cocaine Screen POSITIVE H (Not Detect) U Marijuana (THC) Screen Not Detected (Not Detect) Ethyl Alcohol mg/dL COVID-19 (HARJIT) Negative (Negative) COVID-19 Clin Com See Note 08/27/20 08/27/20 08/27/20 Range/Units 15:20 15:20 15:20 WBC 25.9 H (4.8-10.8) X10*3/uL RBC 4.00 L (4.20-5.50) X10*6/uL Hgb 10.1 L (12.0-16.0) g/dl Hct 32.2 L (37-47) % MCV 80.5 (80-98) fL MCH 25.3 L (27.0-33.0) pg MCHC 31.4 (31.0-35.0) g/dl RDW 16.1 H (11.0-16.0) % Plt Count 330 (160-400) X10*3/uL MPV 10.2 (9.4-12.3) fL Immature Gran % (Auto) 0.5 H (0.0-0.4) % Neut % (Auto) 96.9 H (45-73) % Lymph % (Auto) 1.4 L (20-40) % [place] % (Auto) 1.0 L (2-11) % Eos % (Auto) 0.0 (0-4) % Baso % (Auto) 0.2 (0-2) % Lymph # (Auto) 0.4 L (1.2-4.9) X10*3/uL [place] # (Auto) 0.3 (0.1-1.2) X10*3/uL Eos # (Auto) 0.0 (0.0-0.4) X10*3/uL Baso # (Auto) 0.0 (0.0-0.2) X10*3/uL Abs Immat Gran (auto) 0.13 H (0.00-0.03) X10*3/uL Absolute Neuts (auto) 25.1 H (2.0-8.3) X10*3/uL Absolute Nucleated RBC 0.000 (0.0-0.012) X10*3/uL Nucleated RBC % (auto) 0.0 (0.0-0.2) /100WBC Smear Tech's Comments VERIFIED Hold Blue Top SEE NOTE Sodium 140 (135-145) mmol/L Potassium 2.9 L (3.3-5.1) mmol/L Chloride 106 (96-108) mmol/L Carbon Dioxide 22 (22-29) mmol/L Anion Gap 15 (12-20) BUN 9 (9-16) mg/dL Creatinine 0.73 (0.5-1.4) mg/dL Estim Creat Clear Calc 85.4 Estimated GFR > 60 Random Glucose 116 H (60-115) mg/dL Lactic Acid (0.5-2.0) mmol/L Calcium 8.4 (8.4-10.2) mg/dL Magnesium 1.7 (1.6-2.6) mg/dL Total Bilirubin 0.8 (0.0-1.0) mg/dL Direct Bilirubin 0.3 (0.0-0.5) mg/dL AST 97 H (5-31) U/L ALT 48 H (0-31) U/L Alkaline Phosphatase 126 H (39-117) U/L Total Protein 6.7 (6.5-8.0) g/dL Albumin 3.4 L (3.5-5.0) g/dL Urine Color Urine Appearance Urine pH (5.0-8.0) Ur Specific [place] (1.005-1.025) Urine Protein (NEG-TRACE) MG/DL Urine Glucose (UA) (NEG) MG/DL Urine Ketones (NEG) MG/DL Urine Blood (NEG) Urine Nitrite (NEG) Ur Leukocyte Esterase (NEG) Urine RBC (0) /HPF Urine WBC (0-4) /HPF Ur Squamous Epith Cells /LPF Ur Renal Epithelial Cell /LPF Urine Bacteria /LPF Urine Opiates Screen (Not Detect) Ur Barbiturates Screen (Not Detect) Ur Phencyclidine Scrn (Not Detect) Ur Amphetamines Screen (Not Detect) U Benzodiazepines Scrn (Not Detect) Urine Cocaine Screen (Not Detect) U Marijuana (THC) Screen (Not Detect) Ethyl Alcohol mg/dL COVID-19 (HARJIT) (Negative) COVID-19 Clin Com 08/27/20 08/27/20 08/27/20 Range/Units 15:20 19:10 21:09 WBC 34.8 H* (4.8-10.8) X10*3/uL RBC 3.89 L (4.20-5.50) X10*6/uL Hgb 9.7 L (12.0-16.0) g/dl Hct 31.1 L (37-47) % MCV 79.9 L (80-98) fL MCH 24.9 L (27.0-33.0) pg MCHC 31.2 (31.0-35.0) g/dl RDW 16.3 H (11.0-16.0) % Plt Count 351 (160-400) X10*3/uL MPV 10.0 (9.4-12.3) fL Immature Gran % (Auto) 0.8 H (0.0-0.4) % Neut % (Auto) 91.9 H (45-73) % Lymph % (Auto) 4.2 L (20-40) % [place] % (Auto) 2.9 (2-11) % Eos % (Auto) 0.0 (0-4) % Baso % (Auto) 0.2 (0-2) % Lymph # (Auto) 1.5 (1.2-4.9) X10*3/uL [place] # (Auto) 1.0 (0.1-1.2) X10*3/uL Eos # (Auto) 0.0 (0.0-0.4) X10*3/uL Baso # (Auto) 0.1 (0.0-0.2) X10*3/uL Abs Immat Gran (auto) 0.27 H (0.00-0.03) X10*3/uL Absolute Neuts (auto) 32.0 H (2.0-8.3) X10*3/uL Absolute Nucleated RBC 0.000 (0.0-0.012) X10*3/uL Nucleated RBC % (auto) 0.0 (0.0-0.2) /100WBC Smear Tech's Comments Hold Blue Top Sodium (135-145) mmol/L Potassium (3.3-5.1) mmol/L Chloride (96-108) mmol/L Carbon Dioxide (22-29) mmol/L Anion Gap (12-20) BUN (9-16) mg/dL Creatinine (0.5-1.4) mg/dL Estim Creat Clear Calc Estimated GFR Random Glucose (60-115) mg/dL Lactic Acid 3.0 H* (0.5-2.0) mmol/L Calcium (8.4-10.2) mg/dL Magnesium (1.6-2.6) mg/dL Total Bilirubin (0.0-1.0) mg/dL Direct Bilirubin (0.0-0.5) mg/dL AST (5-31) U/L ALT (0-31) U/L Alkaline Phosphatase (39-117) U/L Total Protein (6.5-8.0) g/dL Albumin (3.5-5.0) g/dL Urine Color Urine Appearance Urine pH (5.0-8.0) Ur Specific [place] (1.005-1.025) Urine Protein (NEG-TRACE) MG/DL Urine Glucose (UA) (NEG) MG/DL Urine Ketones (NEG) MG/DL Urine Blood (NEG) Urine Nitrite (NEG) Ur Leukocyte Esterase (NEG) Urine RBC (0) /HPF Urine WBC (0-4) /HPF Ur Squamous Epith Cells /LPF Ur Renal Epithelial Cell /LPF Urine Bacteria /LPF Urine Opiates Screen (Not Detect) Ur Barbiturates Screen (Not Detect) Ur Phencyclidine Scrn (Not Detect) Ur Amphetamines Screen (Not Detect) U Benzodiazepines Scrn (Not Detect) Urine Cocaine Screen (Not Detect) U Marijuana (THC) Screen (Not Detect) Ethyl Alcohol < 10 mg/dL COVID-19 (HARJIT) (Negative) COVID-19 Clin Com 08/27/20 Range/Units 21:11 WBC (4.8-10.8) X10*3/uL RBC (4.20-5.50) X10*6/uL Hgb (12.0-16.0) g/dl Hct (37-47) % MCV (80-98) fL MCH (27.0-33.0) pg MCHC (31.0-35.0) g/dl RDW (11.0-16.0) % Plt Count (160-400) X10*3/uL MPV (9.4-12.3) fL Immature Gran % (Auto) (0.0-0.4) % Neut % (Auto) (45-73) % Lymph % (Auto) (20-40) % [place] % (Auto) (2-11) % Eos % (Auto) (0-4) % Baso % (Auto) (0-2) % Lymph # (Auto) (1.2-4.9) X10*3/uL [place] # (Auto) (0.1-1.2) X10*3/uL Eos # (Auto) (0.0-0.4) X10*3/uL Baso # (Auto) (0.0-0.2) X10*3/uL Abs Immat Gran (auto) (0.00-0.03) X10*3/uL Absolute Neuts (auto) (2.0-8.3) X10*3/uL Absolute Nucleated RBC (0.0-0.012) X10*3/uL Nucleated RBC % (auto) (0.0-0.2) /100WBC Smear Tech's Comments Hold Blue Top Sodium (135-145) mmol/L Potassium (3.3-5.1) mmol/L Chloride (96-108) mmol/L Carbon Dioxide (22-29) mmol/L Anion Gap (12-20) BUN (9-16) mg/dL Creatinine (0.5-1.4) mg/dL Estim Creat Clear Calc Estimated GFR Random Glucose (60-115) mg/dL Lactic Acid 2.0 (0.5-2.0) mmol/L Calcium (8.4-10.2) mg/dL Magnesium (1.6-2.6) mg/dL Total Bilirubin (0.0-1.0) mg/dL Direct Bilirubin (0.0-0.5) mg/dL AST (5-31) U/L ALT (0-31) U/L Alkaline Phosphatase (39-117) U/L Total Protein (6.5-8.0) g/dL Albumin (3.5-5.0) g/dL Urine Color Urine Appearance Urine pH (5.0-8.0) Ur Specific [place] (1.005-1.025) Urine Protein (NEG-TRACE) MG/DL Urine Glucose (UA) (NEG) MG/DL Urine Ketones (NEG) MG/DL Urine Blood (NEG) Urine Nitrite (NEG) Ur Leukocyte Esterase (NEG) Urine RBC (0) /HPF Urine WBC (0-4) /HPF Ur Squamous Epith Cells /LPF Ur Renal Epithelial Cell /LPF Urine Bacteria /LPF Urine Opiates Screen (Not Detect) Ur Barbiturates Screen (Not Detect) Ur Phencyclidine Scrn (Not Detect) Ur Amphetamines Screen (Not Detect) U Benzodiazepines Scrn (Not Detect) Urine Cocaine Screen (Not Detect) U Marijuana (THC) Screen (Not Detect) Ethyl Alcohol mg/dL COVID-19 (HARJIT) (Negative) COVID-19 Clin Com Discharge Plan Discharge Clinical Impression: Sepsis, IVDA (intravenous drug abuse) complicating Patient Disposition: Admitted As Inpatient
[2020-08-28] MEDS: cefTRIAXone sodium 2 GM in 0.9 % Sodium Chloride 50 ML IV (01:49)
[2020-08-28] MEDS: 0.9 % Sodium Chloride 1,000 ML 999 ML IVCONT (01:50)
[2020-08-28] MEDS: vancomycin HCL 1,000 MG in 0.9 % Sodium Chloride 250 ML 270 MG IV (02:08)
[2020-08-28] MEDS: iohexoL 350 MG/ML 100 ML INFUS..BTL 85 ML IV (02:33)
--- NOTE | 2020-08-28 02:53 | PC.NURSE ---
After several attempts for IV, used u/s for iv placement to LAC, labs drawn to lab, Pt medicated as per emar. Pt sleeping in stretcher, wakes to voice and falls back to sleep. Pt in NAD. Will continue to monitor pt.
--- NOTE | 2020-08-28 06:39 | P.HPHOSP_ITS ---
History of Present Illness Date of Service: 08/28/20 Chief Complaint: heroin withdrawal This is a 49-year-old female with a past medical history of IV drug use including heroin and crack who presented to the hospital with complaints of heroin withdrawal. Patient is very somnolent, very difficult to arouse, after receiving various medications to calm her down while in the ED including Haldol Ativan and clonidine and currently not able to give much useful information. Therefore history is obtained from EMR and ED physician. Patient presented stating that she last use drugs around 12:00 p.m. the day prior, reporting feeling awful. She feels like she is going to . She states that this is the worse withdrawal she has ever experienced. She reports numbness in her hands abdominal pain, chest pain, shortness of breath, anxiety. She used to be on methadone but stopped taking a few weeks ago. In the ED her vitals are significant for heart rate of 108, temperature 96.8?, is respiratory rate of 18, blood pressure 133/66, satting 98% on room air Further workup in the ED including labs showed WBC count of 25.9 increased to 34.8 on repeat, hemoglobin of 10.1 which is around her baseline, potassium of 2.9, lactic acid of 3.0, AST of 97, ALT of 48, alk-phos of 126, UA negative, UDS positive for opioids, cocaine. COVID-19 negative. Patient had imaging including head CT, chest CT, abdomen/pelvic CT: Suboptimal assessment due to patient motion artifact. No definite acute findings identified in the chest abdomen or pelvis. Has CT shows no acute intracranial pathology Past medical history per EMR Review of Systems Review of Systems: Yes Unobtainable due to mental status [facility] Medical History Substance abuse Social History Alcohol intake: never Smoking Status: Current some day smoker Smoked in Last 30 Days: Yes Use of substances other than those prescribed or required for medical reasons: Yes Substance Use Type: Crack/Cocaine and Heroin Substance Use Frequency: Chronic Longstanding Last Used Substance: Days (ago) Any prior treatment program specific to substance use: Yes Advance Directives: No Advance Directives Information Provided: Yes Patient : No Meds Allergies Allergy/AdvReac Type Severity Reaction Status Date / Time No Known Allergies Allergy Verified 08/21/20 05:57 Physical Exam Vital Signs and Narrative: Vital Signs: Last Vital Signs Temp 98.4 F 08/27/20 23:43 Pulse 89 08/28/20 04:00 Resp 16 08/28/20 04:00 BP 108/92 H 08/28/20 04:00 Pulse Ox 97 08/28/20 04:00 Body Mass Index 29.2 Const: General: cooperative and no acute distress Eyes: General: appearance normal, both eyes and all related structures Resp: Effort & Inspection: normal respiratory effort and able to speak in com plete sentences Auscultation: clear to auscultation bilaterally Cardio: Rate: regular rate Rhythm: regular rhythm GI: Palpation (GI): Soft to palpation Auscultation: normal bowel sounds Skin: General skin exam: no rashes or lesions noted Neuro: Other: Somnolent Extrem: General: Yes normal to inspection and Yes no pedal edema Results Labs CBC and Chem 7: 08/27/20 21:09 08/27/20 15:20 Labs: Laboratory Results - last 24 hr 08/27/20 08/27/20 08/27/20 13:23 13:23 13:23 MCV MCH MCHC RDW Plt Count MPV Immature Gran % (Auto) Neut % (Auto) Lymph % (Auto) [place] % (Auto) Eos % (Auto) Baso % (Auto) Lymph # (Auto) [place] # (Auto) Eos # (Auto) Baso # (Auto) Abs Immat Gran (auto) Absolute Neuts (auto) Absolute Nucleated RBC Nucleated RBC % (auto) Smear Tech's Comments Hold Blue Top Anion Gap Estim Creat Clear Calc Estimated GFR Random Glucose Lactic Acid Calcium Magnesium Total Bilirubin Direct Bilirubin AST ALT Alkaline Phosphatase Total Protein Albumin Urine Color YELLOW Urine Appearance CLEAR Urine pH 7.0 Ur Specific [place] 1.010 Urine Protein 1+ H Urine Glucose (UA) NEG Urine Ketones NEG Urine Blood NEG Urine Nitrite NEG Ur Leukocyte Esterase NEG Urine RBC 0-2 Urine WBC 0-2 Ur Squamous Epith Cells 1+ Ur Renal Epithelial Cell 1+ Urine Bacteria NONE Urine Opiates Screen POSITIVE H Ur Barbiturates Screen Not Detected Ur Phencyclidine Scrn Not Detected Ur Amphetamines Screen Not Detected U Benzodiazepines Scrn Not Detected Urine Cocaine Screen POSITIVE H U Marijuana (THC) Screen Not Detected Ethyl Alcohol COVID-19 (HARJIT) Negative COVID-19 Clin Com See Note 08/27/20 08/27/20 08/27/20 15:20 15:20 15:20 MCV 80.5 MCH 25.3 L MCHC 31.4 RDW 16.1 H Plt Count 330 MPV 10.2 Immature Gran % (Auto) 0.5 H Neut % (Auto) 96.9 H Lymph % (Auto) 1.4 L [place] % (Auto) 1.0 L Eos % (Auto) 0.0 Baso % (Auto) 0.2 Lymph # (Auto) 0.4 L [place] # (Auto) 0.3 Eos # (Auto) 0.0 Baso # (Auto) 0.0 Abs Immat Gran (auto) 0.13 H Absolute Neuts (auto) 25.1 H Absolute Nucleated RBC 0.000 Nucleated RBC % (auto) 0.0 Smear Tech's Comments VERIFIED Hold Blue Top SEE NOTE Anion Gap 15 Estim Creat Clear Calc 85.4 Estimated GFR > 60 Random Glucose 116 H Lactic Acid Calcium 8.4 Magnesium 1.7 Total Bilirubin 0.8 Direct Bilirubin 0.3 AST 97 H ALT 48 H Alkaline Phosphatase 126 H Total Protein 6.7 Albumin 3.4 L Urine Color Urine Appearance Urine pH Ur Specific [place] Urine Protein Urine Glucose (UA) Urine Ketones Urine Blood Urine Nitrite Ur Leukocyte Esterase Urine RBC Urine WBC Ur Squamous Epith Cells Ur Renal Epithelial Cell Urine Bacteria Urine Opiates Screen Ur Barbiturates Screen Ur Phencyclidine Scrn Ur Amphetamines Screen U Benzodiazepines Scrn Urine Cocaine Screen U Marijuana (THC) Screen Ethyl Alcohol COVID-19 (HARJIT) COVID-19 Clin Com 08/27/20 08/27/20 08/27/20 15:20 19:10 21:09 MCV 79.9 L MCH 24.9 L MCHC 31.2 RDW 16.3 H Plt Count 351 MPV 10.0 Immature Gran % (Auto) 0.8 H Neut % (Auto) 91.9 H Lymph % (Auto) 4.2 L [place] % (Auto) 2.9 Eos % (Auto) 0.0 Baso % (Auto) 0.2 Lymph # (Auto) 1.5 [place] # (Auto) 1.0 Eos # (Auto) 0.0 Baso # (Auto) 0.1 Abs Immat Gran (auto) 0.27 H Absolute Neuts (auto) 32.0 H Absolute Nucleated RBC 0.000 Nucleated RBC % (auto) 0.0 Smear Tech's Comments Hold Blue Top Anion Gap Estim Creat Clear Calc Estimated GFR Random Glucose Lactic Acid 3.0 H* Calcium Magnesium Total Bilirubin Direct Bilirubin AST ALT Alkaline Phosphatase Total Protein Albumin Urine Color Urine Appearance Urine pH Ur Specific [place] Urine Protein Urine Glucose (UA) Urine Ketones Urine Blood Urine Nitrite Ur Leukocyte Esterase Urine RBC Urine WBC Ur Squamous Epith Cells Ur Renal Epithelial Cell Urine Bacteria Urine Opiates Screen Ur Barbiturates Screen Ur Phencyclidine Scrn Ur Amphetamines Screen U Benzodiazepines Scrn Urine Cocaine Screen U Marijuana (THC) Screen Ethyl Alcohol < 10 COVID-19 (HARJIT) COVID-19 Marqui 08/27/20 21:11 MCV MCH MCHC RDW Plt Count MPV Immature Gran % (Auto) Neut % (Auto) Lymph % (Auto) [place] % (Auto) Eos % (Auto) Baso % (Auto) Lymph # (Auto) [place] # (Auto) Eos # (Auto) Baso # (Auto) Abs Immat Gran (auto) Absolute Neuts (auto) Absolute Nucleated RBC Nucleated RBC % (auto) Smear Tech's Comments Hold Blue Top Anion Gap Estim Creat Clear Calc Estimated GFR Random Glucose Lactic Acid 2.0 Calcium Magnesium Total Bilirubin Direct Bilirubin AST ALT Alkaline Phosphatase Total Protein Albumin Urine Color Urine Appearance Urine pH Ur Specific [place] Urine Protein Urine Glucose (UA) Urine Ketones Urine Blood Urine Nitrite Ur Leukocyte Esterase Urine RBC Urine WBC Ur Squamous Epith Cells Ur Renal Epithelial Cell Urine Bacteria Urine Opiates Screen Ur Barbiturates Screen Ur Phencyclidine Scrn Ur Amphetamines Screen U Benzodiazepines Scrn Urine Cocaine Screen U Marijuana (THC) Screen Ethyl Alcohol COVID-19 (HARJIT) COVID-19 Clin Com Imaging Radiologist's Impressions: Impressions Chest X-Ray 08/27/20 15:49 IMPRESSION: Unremarkable examination. Abdomen/Pelvis CT 08/28/20 01:51 IMPRESSION: 1. Suboptimal assessment due to patient motion artifact. No definite acute findings identified in the chest, abdomen, or pelvis. 2. Mildly prominent right axillary lymph node, nonspecific. Correlation with screening mammography is recommended. 3. Tiny right renal calculi without hydronephrosis. Chest CT 08/28/20 01:51 IMPRESSION: 1. Suboptimal assessment due to patient motion artifact. No definite acute findings identified in the chest, abdomen, or pelvis. 2. Mildly prominent right axillary lymph node, nonspecific. Correlation with screening mammography is recommended. 3. Tiny right renal calculi without hydronephrosis. Head CT 08/28/20 01:51 IMPRESSION: No acute intracranial pathology. Assessment and Plan (1) Sepsis: Status: Acute (2) IVDA (intravenous drug abuse) complicating : Status: Acute (3) Leukocytosis: Status: Acute This is a 49-year-old female who presents to the hospital with various complain ts found to have sepsis # sepsis - possibly secondary to endocarditis given her history of IV drug abuse - CT imaging suboptimal but no acute infection seen on CT chest or abdomen, urine negative - has leukocytosis, tachycardia - follow cultures - echocardiogram to evaluate for endocarditis # IV drug abuse - uses crack cocaine as well as heroin - will consult Care team - clonidine and hydroxyzine for withdrawal symptoms # leukocytosis - secondary to above - IV antibiotics - follow CBC DVT prophylaxis: Heparin subQ
[2020-08-28] MEDS: 0.9 % Sodium Chloride Flush 3 ML SYRINGE IVFLUSH ×3 (09:31→22:51)
[2020-08-28] MEDS: Piperacillin Sodium/Tazobactam 3.375 GM in 0.9 % Sodium Chloride 50 ML IV ×3 (09:41→21:38)
[2020-08-28] MEDS: Heparin Sodium,Porcine 5,000 UNIT/ML VIAL 5000 UNIT SUBCUT ×2 (09:46→21:39)
--- NOTE | 2020-08-28 09:52 | PC.NURSE ---
PT IS CURRENTLY RESTING IN THE STRETCHER COMFORTABLY, DENIES PAIN , NS ON THE ZOLL, VS STABLE. PT AWARE OF PLAN TO ADMIT TO THE HOSPITAL.
[2020-08-28] MEDS: Lactated Ringers 1,000 ML 100 ML IVCONT ×2 (10:35→16:53)
[2020-08-28] MEDS: vancomycin HCL 1,000 MG in 0.9 % Sodium Chloride 250 ML 166.67 MG IV (14:11)
--- NOTE | 2020-08-28 15:02 | PC.NURSE ---
pt's iv in the left upper arm infiltrated, dr davey started another us guided iv in the right upper arm. hot pack applied to the left arm
--- NOTE | 2020-08-28 15:52 | PC.NURSE ---
lr fluids paused while the piperacillin is infusing
--- NOTE | 2020-08-28 19:10 | PC.NURSE ---
Report received from Marilin VILCHIS. Pt observed to be resting comfortably in stretcher without distress noted. Pt is 60-70s sinus on the visiting professor with respirations even and unlabored. RN will continue to monitor.
[2020-08-28] MEDS: hydrOXYzine HCL 25 MG TABLET PO (22:51)
[2020-08-29] VITALS: BP 133/76; PULSE 84; RESP 16; TEMP 36.6; O2SAT 99
[2020-08-29] MEDS: Piperacillin Sodium/Tazobactam 3.375 GM in 0.9 % Sodium Chloride 50 ML IV ×2 (01:25→08:11)
[2020-08-29] MEDS: vancomycin HCL 1,000 MG in 0.9 % Sodium Chloride 250 ML 166.67 MG IV (01:57)
[2020-08-29 03:07] VITALS: BP 142/80; PULSE 77
[2020-08-29] MEDS: cloNIDine HCL 0.1 MG TABLET PO ×2 (03:07→10:26)
[2020-08-29 04:00] VITALS: BP 141/77; PULSE 69; RESP 18; TEMP 37; O2SAT 98
[2020-08-29] MEDS: hydrOXYzine HCL 25 MG TABLET PO (05:18)
[2020-08-29 07:15] LABS: MANUAL DIFF FLAG NO
[2020-08-29 07:24] LABS: Basophils Percent Auto 0.4 % (0-2); Eosinophils Absolute Auto 0.1 X10*3/uL (0.0-0.4); Eosinophils Percent Auto 1.1 % (0-4); Hematocrit 30.8 % (37-47); Hemoglobin 9.4 g/dl (12.0-16.0); Imm Gran Abs Auto 0.04 X10*3/uL (0.00-0.03); Imm Gran Pct Auto 0.4 % (0.0-0.4); Lymphocytes Absolute Auto 1.6 X10*3/uL (1.2-4.9); Lymphocytes Percent Auto 16.7 % (20-40); Mean Corpuscular HGB Conc 30.5 g/dl (31.0-35.0); Mean Corpuscular Hemoglobin 24.6 pg (27.0-33.0); Mean Corpuscular Volume 80.6 fL (80-98); Mean Platelet Volume 11.6 fL (9.4-12.3); Monocytes Absolute Auto 0.9 X10*3/uL (0.1-1.2); Monocytes Percent Auto 9.6 % (2-11); Neutrophils Absolute Auto 6.7 X10*3/uL (2.0-8.3); Neutrophils Percent Auto 71.8 % (45-73); Platelet Count 285 X10*3/uL (160-400); Red Blood Count 3.82 X10*6/uL (4.20-5.50); White Blood Count 9.3 X10*3/uL (4.8-10.8)
[2020-08-29 07:34] VITALS: BP 140/67; PULSE 84; RESP 20; TEMP 37.2; O2SAT 98
[2020-08-29 08:12] LABS: Blood Urea Nitrogen 10 mg/dL (9-16); Creatinine Clr Calc Pharmacy 98.4; Estimated Glomerular Filt Rate > 60; Glucose Random 97 mg/dL (60-115)
[2020-08-29] MEDS: 0.9 % Sodium Chloride Flush 3 ML SYRINGE IVFLUSH (08:12)
[2020-08-29] MEDS: Heparin Sodium,Porcine 5,000 UNIT/ML VIAL 5000 UNIT SUBCUT (08:22)
[2020-08-29 08:31] LABS: Anion Gap 13 (12-20); Carbon Dioxide 23 mmol/L (22-29); Chloride 111 mmol/L (96-108); Potassium 3.7 mmol/L (3.3-5.1); Sodium 143 mmol/L (135-145)
--- NOTE | 2020-08-29 09:24 | MHC.CM.PN ---
CM met with Patient at bedside and addressed IMM with her, providing her with the original and placing a copy on the chart. Patient is homeless and may return to staying with a Friend or to her Mother or Son's place. CM has initiated and will follow for dc planning. Care Team is already involved (IVDA) and appears to be pursuing Detox facility for dc. PCP is Dr. Eduar Melton.Should LT IVABT be needed, [facility] and/or [facility] would be the only possibility for SNF placement with IVDA history. CM has initiated and will follow for dc planning.
[2020-08-29 10:26] VITALS: BP 154/93; PULSE 83
--- NOTE | 2020-08-29 10:30 | MHC.RECOVRN ---
49 year old female presented to [facility] ED via EMS on 08/27 due to heroin withdrawals. per EMS last use of heroin was yesterday at 1400, pt used 2 bags per [employer] sports [employer]. Upon labs and evaluation, pt was found to have elevated WBC, possibly secondary to endocarditis, and was admitted for sepsis.? T/w met with pt in 470 after consult was placed to CARE Team for OUD. Prior to t/w entering the room, pt had notified RN of desire to leave AMA. T/w discussed possible options to make pt more comfortable while here, pt responded If I can't get in anywhere else, I'll come back. Pt believed there was a bed at [facility] for [facility] level of care, t/w informed pt that [facility] are not open at this time due to the buy out by [employer]. Pt was also educated regarding the possibility of needing personalized living assistant antibiotics and that could not be done at [facility]. Pt then explained that she felt alone and disconnected without her cell phone and would like to leave anyway to retrieve that. Pt denies having anyone available to bring the cell phone to her.? After further discussion about risks involved, pt wishes to continue with self directed discharge. Pt encouraged to return to the hospital.?
--- NOTE | 2020-08-29 10:53 | PC.NURSE ---
Pt deciding to leave AMA. Md aware and at beside. Pt educated on risks of leaving, and acknowledged understanding.
--- NOTE | 2020-08-29 11:25 | P.DS_ITS ---
DS: Providers Provider Date of Service: 08/29/20 Date of admission: 08/28/20 02:35 Primary care physician: Eduar Melton MD Consults: 08/28/20 07:09 Consult to Care Team Routine Comment: Reason for consultation: opioid use disorder DS: Diagnosis Discharge Diagnosis (1) Sepsis: Status: Acute (2) IVDA (intravenous drug abuse) complicating : Status: Acute (3) Leukocytosis: Status: Acute DS: Medications Discharge Medications Home Medications: Home Medications Medication Instructions Recorded Confirmed No Known Home Meds 08/28/20 08/28/20 DS: Summary Hospital Course Hospital Course: Patient was admitted for sepsis, source was unclear, she was treated with broad- spectrum vancomycin and Zosyn. Blood culture came back positive for Gram- negative rods. She was also treated for opioid withdrawal. Workup still in progress and patient requires continued monitoring in inpatient setting, however, patient decided to leave against medical advice. She is aware of risks of doing so including . Time Spent with Patient Time attestation: Total time spent providing and/or coordinating discharge s ervices: Discharge coordination time: Greater than 30 minutes Quality: Stroke Does the patient have a stroke diagnosis?: No Physical Exam Vital Signs: Vital Signs: Last Vital Signs Temp 98.9 F 08/29/20 07:34 Pulse 83 08/29/20 10:26 Resp 20 08/29/20 07:34 BP 154/93 H 08/29/20 10:26 Pulse Ox 98 08/29/20 07:34 Body Mass Index 30.8 General: AO X 3, no acute distress Resp: CTA bilateral CVS: S1,S2,RRR GI: soft, non tender, non distended Neuro: motor grossly intact Psych: appropriate affect DS: Data Data Completed and Pending Labs on day of discharge: Laboratory Results - last 24 hr 08/29/20 08/29/20 06:21 06:21 WBC 9.3 RBC 3.82 L Hgb 9.4 L Hct 30.8 L MCV 80.6 MCH 24.6 L MCHC 30.5 L RDW 17.0 H Plt Count 285 MPV 11.6 Immature Gran % (Auto) 0.4 Neut % (Auto) 71.8 Lymph % (Auto) 16.7 L [place] % (Auto) 9.6 Eos % (Auto) 1.1 Baso % (Auto) 0.4 Lymph # (Auto) 1.6 [place] # (Auto) 0.9 Eos # (Auto) 0.1 Baso # (Auto) 0.0 Abs Immat Gran (auto) 0.04 H Absolute Neuts (auto) 6.7 Absolute Nucleated RBC 0.000 Nucleated RBC % (auto) 0.0 Sodium 143 Potassium 3.7 D Chloride 111 H Carbon Dioxide 23 Anion Gap 13 BUN 10 Creatinine 0.65 Estim Creat Clear Calc 98.4 Estimated GFR > 60 Random Glucose 97 Calcium 8.0 L Preliminary micro results at discharge 08/27/20 19:10 Blood Culture - Preliminary Blood - Venous Gram negative jos 08/27/20 19:10 Blood Culture - Preliminary Blood - Venous No growth after 24 hours. Discharge Plan Discharge Patient Disposition: Left Against Medical Advice Discharge Diagnosis: gram negative bacteremia, sepsis Referrals: Eduar Melton MD [Primary Care Provider] - 1 Week Discharge Medications: No Action No Known Home Meds RF: 0 Discharge Orders: Discharge Order (Routine); Ordered 08/29/20 Ordered By: Mele Hua Activity on Discharge: As tolerated Care Plan Goals: recovery Health Concerns: infection Plan of Treatment: needs in hospital treatment Assessment: see above
== END 2020-08-29 11:30 | disposition left against medical advice (07) | DRG 872 ==
LOC: HO.ED 08-28 01:55 → HO.EDOVER 08-28 02:53 → HO.IMC 08-28 19:14
PROVIDERS: Physician Assistant; Admitting Provider Internal Medicine; Emergency Provider Emergency Medicine; PCP Internal Medicine; Visit Provider Internal Medicine
DX: A41.9 Sepsis, unspecified organism (principal); F11.23 Opioid dependence with withdrawal; F17.290 Nicotine dependence, other tobacco product, uncomplicated; Z71.6 Tobacco abuse counseling; Z20.822 Contact with and (suspected) exposure to COVID-19; Z59.0 Homelessness
CPT/HCPCS: 36415; 70450; 71045; 71260; 74177; 80048; 80076; 80307; 80320; 81001; 83605; 83735; 85025; 87040; 87077; 87186; 87205; 87635; 93005; 96365; 96368; 96372; 99285; J0696; J2543; J3370; Q9967

== ENCOUNTER 2020-12-09 16:20 | Inpatient (IN) | payer OTHER, SELFPAY ==
--- NOTE | 2020-12-09 16:29 | ECG_ITS ---
Test Reason : PSYCHIATRIC Blood Pressure : / mmHG Vent. Rate : 067 BPM Atrial Rate : 067 BPM P-R Int : 126 ms QRS Dur : 086 ms QT Int : 450 ms P-R-T Axes : 033 057 037 degrees QTc Int : 475 ms Normal sinus rhythm Normal ECG When compared with ECG of 27-AUG-2020 15:31, QT has lengthened Referred By: Caroline Andersen Electronically Signed By:JORGE TANNER
--- NOTE | 2020-12-09 16:29 | ED_ITS ---
HPI - Psych General Chief Complaint: Psychiatric Symptoms Stated Complaint: SI Time Seen by Provider: 12/09/20 16:28 Source: patient and old records reviewed Mode of arrival: ambulatory Limitations: no limitations History of Present Illness MD complaint: suicidal ideation and feels depressed Onset (ago): week(s) Duration: getting worse History of same: Yes Relieving factors: none Exacerbating factors: other (homelessness) Context: significant life stressor Associated psychiatric symptoms: depression and suicidal ideation Associated symptoms: denies other symptoms If self harm: admits thoughts of self harm and has plan Related Data Home Medications Medication Instructions Recorded Confirmed No Known Home Meds 08/28/20 08/28/20 Allergies Allergy/AdvReac Type Severity Reaction Status Date / Time No Known Allergies Allergy Verified 08/21/20 05:57 Review of Systems Review of Systems: Constitutional : No Fever, No Chills ENT/Mouth : No Ear Pain, No Nasal Congestion, No sore throat Eyes: No Eye Pain, No Swelling, No Redness Cardiovascular : No Chest Pain, No SOB Respiratory : No Cough, No Sputum, No Dyspnea Gastrointestinal : No Nausea, No Vomiting, No Diarrhea, No Hematochezia, No Melena Genitourinary : No Dysuria, No Urinary Frequency, No Hematuria Musculoskeletal : No Myalgias Skin : No Skin Lesions, No rash Neuro : No Weakness, No Numbness, No Paresthesias, No Dizziness, No Headache Psych : positive Anxiety, positive Depression, positive SI no HI Heme/Lymph: No Lymphadenopathy Endocrine : No Polyuria, No Polydipsia All other systems reviewed and are negative [facility] Past Medical History Attestation statement: The following information was validated with the patient. Medical History Substance abuse Social History Social History Household Members: None Housing: Homeless Do you presently have visiting nurse or other home services: No Alcohol intake: never Substance Use Type: Crack/Cocaine and Heroin Advance Directives: No Advance Directives Information Provided: Yes Patient : No service: No Current occupational status: disabled Physical Exam Vital Signs: Vital Signs: Last Vital Signs Temp 99.3 F 12/09/20 16:45 Pulse 73 12/09/20 16:45 Resp 16 12/09/20 16:45 BP 130/70 12/09/20 16:45 Pulse Ox 96 12/09/20 16:45 Body Mass Index 27.5 Appearance: Alert. Oriented X3. No acute distress. Anxious Eyes: Pupils equal, round and reactive to light. ENT: Pharynx normal. Neck: Normal inspection. Neck supple. CVS: Normal heart rate and rhythm. Pulses normal. Respiratory: No respiratory distress. Breath sounds normal. Abdomen: Soft and nontender. Skin: Skin warm and dry. Normal skin color. Normal skin turgor. Extremities: No lower extremity edema. R forearm healing wound - no signs of abscess, partially dehisced but well healing Neuro: Oriented X 3. No motor deficit. No sensory deficit. CN2-12intact Psych: anxious, flat affect, pos SI states she tried to overdose last night Course Course Course Narrative: Physician observation started at 530pm. Patient placed in physician observation because the patient needed more time for BHN to evaluate f or possible inpatient admission. At the time observation was started the patient's vitals were stable, patient is alert and oriented but slightly anxious, Neuro: nonfocal, CV RRR, Lungs clear signed out pending BHN input MDM - Psych MDM Narrative Medical decision making narrative: 50 yo female with hx of substance abuse and depression comes in with c/o depressed and SI - states she tried to overdose last night. At this time will place on section 12, labs, BHN consult. She reports compliance with methadone Lab Data Result diagrams: 12/09/20 17:38 12/09/20 17:38 Labs: Lab Results 12/09/20 12/09/20 12/09/20 Range/Units 16:57 17:38 17:38 WBC 8.5 (4.8-10.8) X10*3/uL RBC 4.29 (4.20-5.50) X10*6/uL Hgb 11.3 L D (12.0-16.0) g/dl Hct 36.8 L (37-47) % MCV 85.8 (80-98) fL MCH 26.3 L (27.0-33.0) pg MCHC 30.7 L (31.0-35.0) g/dl RDW 18.4 H (11.0-16.0) % Plt Count 226 (160-400) X10*3/uL MPV 11.2 (9.4-12.3) fL Immature Gran % (Auto) 0.2 (0.0-0.4) % Neut % (Auto) 58.1 (45-73) % Lymph % (Auto) 30.1 (20-40) % [place] % (Auto) 9.6 (2-11) % Eos % (Auto) 1.5 (0-4) % Baso % (Auto) 0.5 (0-2) % Lymph # (Auto) 2.6 (1.2-4.9) X10*3/uL [place] # (Auto) 0.8 (0.1-1.2) X10*3/uL Eos # (Auto) 0.1 (0.0-0.4) X10*3/uL Baso # (Auto) 0.0 (0.0-0.2) X10*3/uL Abs Immat Gran (auto) 0.02 (0.00-0.03) X10*3/uL Absolute Neuts (auto) 4.9 (2.0-8.3) X10*3/uL Absolute Nucleated RBC 0.000 (0.0-0.012) X10*3/uL Nucleated RBC % (auto) 0.0 (0.0-0.2) /100WBC Sodium 141 (135-145) mmol/L Potassium 3.7 (3.3-5.1) mmol/L Chloride 103 (96-108) mmol/L Carbon Dioxide 29 (22-29) mmol/L Anion Gap 13 (12-20) BUN 12 (9-16) mg/dL Creatinine 0.79 (0.5-1.4) mg/dL Estim Creat Clear Calc 88.2 Estimated GFR > 60 Random Glucose 92 (60-115) mg/dL Calcium 9.3 D (8.4-10.2) mg/dL Total Bilirubin 0.7 (0.0-1.0) mg/dL Direct Bilirubin 0.3 (0.0-0.5) mg/dL AST 16 D (5-31) U/L ALT 9 (0-31) U/L Alkaline Phosphatase 82 D (39-117) U/L Total Protein 7.7 (6.5-8.0) g/dL Albumin 3.9 (3.5-5.0) g/dL Ethyl Alcohol mg/dL COVID-19 ([facility]) Negative (Negative) COVID-19 Clin Com See Note 12/09/20 Range/Units 17:38 WBC (4.8-10.8) X10*3/uL RBC (4.20-5.50) X10*6/uL Hgb (12.0-16.0) g/dl Hct (37-47) % MCV (80-98) fL MCH (27.0-33.0) pg MCHC (31.0-35.0) g/dl RDW (11.0-16.0) % Plt Count (160-400) X10*3/uL MPV (9.4-12.3) fL Immature Gran % (Auto) (0.0-0.4) % Neut % (Auto) (45-73) % Lymph % (Auto) (20-40) % [place] % (Auto) (2-11) % Eos % (Auto) (0-4) % Baso % (Auto) (0-2) % Lymph # (Auto) (1.2-4.9) X10*3/uL [place] # (Auto) (0.1-1.2) X10*3/uL Eos # (Auto) (0.0-0.4) X10*3/uL Baso # (Auto) (0.0-0.2) X10*3/uL Abs Immat Gran (auto) (0.00-0.03) X10*3/uL Absolute Neuts (auto) (2.0-8.3) X10*3/uL Absolute Nucleated RBC (0.0-0.012) X10*3/uL Nucleated RBC % (auto) (0.0-0.2) /100WBC Sodium (135-145) mmol/L Potassium (3.3-5.1) mmol/L Chloride (96-108) mmol/L Carbon Dioxide (22-29) mmol/L Anion Gap (12-20) BUN (9-16) mg/dL Creatinine (0.5-1.4) mg/dL Estim Creat Clear Calc Estimated GFR Random Glucose (60-115) mg/dL Calcium (8.4-10.2) mg/dL Total Bilirubin (0.0-1.0) mg/dL Direct Bilirubin (0.0-0.5) mg/dL AST (5-31) U/L ALT (0-31) U/L Alkaline Phosphatase (39-117) U/L Total Protein (6.5-8.0) g/dL Albumin (3.5-5.0) g/dL Ethyl Alcohol < 10 mg/dL COVID-19 ([facility]) (Negative) COVID-19 Clin Com Discharge Plan Discharge Clinical Impression: Substance abuse, Suicidal ideation Prescriptions: No Action No Known Home Meds RF: 0
[2020-12-09 16:45] VITALS: BP 130/70; PULSE 73; RESP 16; TEMP 37.4; O2SAT 96; BMI 27.5
[2020-12-09] MEDS: Nicotine 21 MG PATCH.TD24 TRANSDERMA (16:54)
[2020-12-09] MEDS: LORazepam 1 MG TABLET PO (16:54)
[2020-12-09 17:27] LABS: COVID-19 Test Negative (Negative); IDNOW Serial# 9DD0AD1C
[2020-12-09 17:42] LABS: MANUAL DIFF FLAG NO
[2020-12-09 17:43] LABS: Basophils Percent Auto 0.5 % (0-2); Eosinophils Absolute Auto 0.1 X10*3/uL (0.0-0.4); Eosinophils Percent Auto 1.5 % (0-4); Hematocrit 36.8 % (37-47); Hemoglobin 11.3 g/dl (12.0-16.0); Imm Gran Abs Auto 0.02 X10*3/uL (0.00-0.03); Imm Gran Pct Auto 0.2 % (0.0-0.4); Lymphocytes Absolute Auto 2.6 X10*3/uL (1.2-4.9); Lymphocytes Percent Auto 30.1 % (20-40); Mean Corpuscular HGB Conc 30.7 g/dl (31.0-35.0); Mean Corpuscular Hemoglobin 26.3 pg (27.0-33.0); Mean Corpuscular Volume 85.8 fL (80-98); Mean Platelet Volume 11.2 fL (9.4-12.3); Monocytes Absolute Auto 0.8 X10*3/uL (0.1-1.2); Monocytes Percent Auto 9.6 % (2-11); Neutrophils Absolute Auto 4.9 X10*3/uL (2.0-8.3); Neutrophils Percent Auto 58.1 % (45-73); Platelet Count 226 X10*3/uL (160-400); Red Blood Count 4.29 X10*6/uL (4.20-5.50); Red Cell Distribution Width 18.4 % (11.0-16.0); White Blood Count 8.5 X10*3/uL (4.8-10.8)
[2020-12-09 18:00] LABS: Ethanol < 10 mg/dL
[2020-12-09 18:04] LABS: Alanine Aminotransferase 9 U/L (0-31); Albumin Level 3.9 g/dL (3.5-5.0); Alkaline Phosphatase 82 U/L (39-117); Anion Gap 13 (12-20); Aspartate Amino Transferase 16 U/L (5-31); Bilirubin Direct 0.3 mg/dL (0.0-0.5); Bilirubin Total 0.7 mg/dL (0.0-1.0); Blood Urea Nitrogen 12 mg/dL (9-16); Calcium 9.3 mg/dL (8.4-10.2); Carbon Dioxide 29 mmol/L (22-29); Chloride 103 mmol/L (96-108); Creatinine Clr Calc Pharmacy 88.2; Estimated Glomerular Filt Rate > 60; Glucose Random 92 mg/dL (60-115); Potassium 3.7 mmol/L (3.3-5.1); Sodium 141 mmol/L (135-145); Total Protein 7.7 g/dL (6.5-8.0)
--- NOTE | 2020-12-09 19:03 | PC.NURSE ---
Care team in to assess patient at this time.
[2020-12-09 19:37] LABS: Amphetamine Screen Urine Not Detected (Not Detect); Barbiturates, Urine Not Detected (Not Detect); Benzodiazepines Screen Urine Not Detected (Not Detect); Cannabinoid Screen Urine Not Detected (Not Detect); Cocaine Screen Urine POSITIVE (Not Detect); Fentanyl, urine POSITIVE (Not Detect); Opiate Screen Urine POSITIVE (Not Detect); Phencyclidine Screen Urine Not Detected (Not Detect)
--- NOTE | 2020-12-09 21:19 | MHC.CARE ---
Pt's dispo is inpatient. [facility].
[2020-12-09 22:02] VITALS: BP 125/80; PULSE 59; RESP 16; TEMP 36.9; O2SAT 97
--- NOTE | 2020-12-09 23:06 | PC.NURSE ---
Patient being admitted to - 319-[address] Hernandez escorted to the floor with n/care team staff and security in a wheelchair with personal belongings
[2020-12-10 00:03] VITALS: BP 133/58; PULSE 72; RESP 18; TEMP 36.1; O2SAT 97
[2020-12-10 08:35] VITALS: BP 126/84; PULSE 73; RESP 16; TEMP 36.7; O2SAT 95
--- NOTE | 2020-12-10 09:36 | P.HPPS_ITS ---
HPI Chief Complaint: Substance use disorder, SI Sources of Information: patient interviewed, chart reviewed and crisis/core team assessment reviewed HPI Subjective Notes: Conditional Voluntary Narrative: Ms. Delgadillo is a 50 year-old woman with hx of MDD, opioid use disorder who was brought [place] [facility] by her mother after intentional OD on opioid. In the ED, her utox was positive for opioid, fentanyl and cocaine. On the unit, Ms. Delgadillo presents as very tired, somnolent, participation in interview is limited due to these factors. Pt reports she has been feeling extremely depressed and OD was with intent to end her life. On the unit, pt denies suicidal ideation but endorses feeling very hopeless. She reports she currently lives with her mother. She does not have a job and this has affected her mental health. She reports she is currently on methadone and would like to continue. Dose of methadone was verified and pt started on 60mg po daily. Past Psychiatric History: Inpatient: none OP: none Suicide attempts: none Medical Evaluation Reviewed: Yes [facility] Medical History Substance abuse Social History: Has two adult children in their 30's. lives with mother. currently not working. Diagnostics Vital Signs (24Hr): Vital Signs - 24 hr 12/09/20 16:45 12/09/20 22:02 12/10/20 00:03 Temperature 99.3 F 98.4 F 97.0 F Pulse Rate 73 59 72 Respiratory Rate 16 16 18 Blood Pressure 130/70 125/80 133/58 L Pulse Oximetry 96 97 97 12/10/20 08:35 Temperature 98.0 F Pulse Rate 73 Respiratory Rate 16 Blood Pressure 126/84 Pulse Oximetry 95 Body Mass Index 27.5 Labs Results: 12/09/20 17:38 12/09/20 17:38 Labs: Laboratory Results - last 48 hr 12/09/20 12/09/20 12/09/20 16:57 17:38 17:38 WBC 8.5 RBC 4.29 Hgb 11.3 L D Hct 36.8 L MCV 85.8 MCH 26.3 L MCHC 30.7 L RDW 18.4 H Plt Count 226 MPV 11.2 Immature Gran % (Auto) 0.2 Neut % (Auto) 58.1 Lymph % (Auto) 30.1 [place] % (Auto) 9.6 Eos % (Auto) 1.5 Baso % (Auto) 0.5 Lymph # (Auto) 2.6 [place] # (Auto) 0.8 Eos # (Auto) 0.1 Baso # (Auto) 0.0 Abs Immat Gran (auto) 0.02 Absolute Neuts (auto) 4.9 Absolute Nucleated RBC 0.000 Nucleated RBC % (auto) 0.0 Sodium 141 Potassium 3.7 Chloride 103 Carbon Dioxide 29 Anion Gap 13 BUN 12 Creatinine 0.79 Estim Creat Clear Calc 88.2 Estimated GFR > 60 Random Glucose 92 Calcium 9.3 D Total Bilirubin 0.7 Direct Bilirubin 0.3 AST 16 D ALT 9 Alkaline Phosphatase 82 D Total Protein 7.7 Albumin 3.9 Urine Opiates Screen Urine Fentanyl Screen Ur Barbiturates Screen Ur Phencyclidine Scrn Ur Amphetamines Screen U Benzodiazepines Scrn Urine Cocaine Screen U Marijuana (THC) Screen Ethyl Alcohol COVID-19 ([facility]) Negative COVID-19 Clin Com See Note 12/09/20 12/09/20 17:38 19:05 WBC RBC Hgb Hct MCV MCH MCHC RDW Plt Count MPV Immature Gran % (Auto) Neut % (Auto) Lymph % (Auto) [place] % (Auto) Eos % (Auto) Baso % (Auto) Lymph # (Auto) [place] # (Auto) Eos # (Auto) Baso # (Auto) Abs Immat Gran (auto) Absolute Neuts (auto) Absolute Nucleated RBC Nucleated RBC % (auto) Sodium Potassium Chloride Carbon Dioxide Anion Gap BUN Creatinine Estim Creat Clear Calc Estimated GFR Random Glucose Calcium Total Bilirubin Direct Bilirubin AST ALT Alkaline Phosphatase Total Protein Albumin Urine Opiates Screen POSITIVE H Urine Fentanyl Screen POSITIVE H Ur Barbiturates Screen Not Detected Ur Phencyclidine Scrn Not Detected Ur Amphetamines Screen Not Detected U Benzodiazepines Scrn Not Detected Urine Cocaine Screen POSITIVE H U Marijuana (THC) Screen Not Detected Ethyl Alcohol < 10 COVID-19 ([facility]IT) COVID-19 Clin Com Meds/Allergies Meds Home Medications Acetaminophen (Acetaminophen 325 Mg Tablet) 650 mg PO Q6H PRN PRN Reason: Headache/Pain Mild Scale (1-3) Al Hydroxide/Mg Hydroxide (Magnesium Hydrox/Alum Hydrox 30 Ml Oral.Susp) 30 ml PO Q6H PRN PRN Reason: Heartburn/Nausea Baclofen (Baclofen 10 Mg Tablet) 10 mg PO TID PRN PRN Reason: muscle spasm Clonidine HCl (Clonidine Hcl 0.1 Mg Tablet) 0.1 mg PO Q8H PRN; Protocol PRN Reason: opioid withdrawal Hydroxyzine HCl (Hydroxyzine Hcl 25 Mg Tablet) 50 mg PO Q6H PRN PRN Reason: Anxiety Loperamide HCl (Loperamide Hcl 2 Mg Capsule) 2 mg PO Q4H PRN PRN Reason: Loose Stool Magnesium Hydroxide (Milk Of Magnesia 30 Ml Oral.Susp) 30 ml PO DAILY PRN PRN Reason: Constipation Methadone HCl (Methadone Hcl 20 Mg/2 Ml Oral.Conc) 60 mg PO DAILY [facility] Last Admin: 12/12/20 09:21 Dose: 60 mg Documented by: Nicotine (Nicotine 21 Mg Patch.Td24) 21 mg TRANSDERMA DAILY [facility] Last Admin: 12/12/20 09:21 Dose: 21 mg Documented by: Quetiapine Fumarate (Quetiapine Fumarate 50 Mg Tablet) 50 mg PO Q6H PRN PRN Reason: agitation/sleep Trazodone HCl (Trazodone Hcl 50 Mg Tablet) 50 mg PO BEDTIME PRN PRN Reason: Insomnia Venlafaxine HCl (Venlafaxine Hcl Er 37.5 Mg Cap.Er.24h) 37.5 mg PO DAILY [facility] Last Admin: 12/12/20 09:17 Dose: 37.5 mg Documented by: Allergies Allergies Allergy/AdvReac Type Severity Reaction Status Date / Time No Known Allergies Allergy Verified 08/21/20 05:57 Mental Status Exam Mental Status Exam Narrative: Appearance: wearing hospital gown, poor hygiene in NAD Behavior:calm, somnolent affecting level of engagement psychomotor: no agitation or retardation noted Speech:clear, normal rate/rhythm/volume, spontaneous Thought process:linear Thought content:no signs of psychosis, feeling hopeless Mood: depressed Affect: blunted SI:denies HI:denies VH/AH:none Delusions:none Insight/judgment:fair x 2. Memory/cog: alert, oriented x 3. Assessment & Plan Assessment & Plan (1) MDD (major depressive disorder), recurrent episode, moderate: Status: Acute Code(s): F33.1 - Major depressive disorder, recurrent, moderate (2) Opioid use disorder, moderate, dependence: Status: Acute Code(s): F11.20 - Opioid dependence, uncomplicated Assessment and Plan: Ms. Delgadillo is a 50 year-old woman with hx of MDD and opioid use disorder on Methadone who was brought by mother due to intentional OD on opioid with intent to end life. We discussed risks, benefits and alternative treatment options. Pt agreed to start effexor for depression. PLAN 1. Admit to M3 2. Continue methadone 60mg po daily 3. PRN meds for opioid withdrawal 4. Start Effexor 37.5 mg po daily 5. Aftercare planning 6. Obtain collateral information Reason for continued inpatient stay Substantial Risk for: harm to self and inability to function
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
--- NOTE | 2020-12-10 11:18 | PC.NURSE ---
Message left for [facility] methadone clinic for dose verification, awaiting call back. Pt states she takes 60mg daily. Provider aware
--- NOTE | 2020-12-10 12:07 | PC.NURSE ---
Methadone dose confirmed with Vern at [facility] in [place]. Pt last dosed on 12/08 with 60mg
[2020-12-10] MEDS: methADONE HCl 20 MG/2 ML ORAL.CONC 60 MG PO (12:24)
[2020-12-10 18:00] VITALS: BP 148/80; PULSE 67; RESP 18; TEMP 36.4; O2SAT 98
--- NOTE | 2020-12-11 07:56 | HO.PSYCHPN ---
Subjective Subjective Date of Service: 12/13/20 Reason For Visit: Substance use disorder, SI Subjective Notes: Conditional Voluntary Interim History: Pt continues to report that she is feeling depressed, very somnolent and tired and wanting to sleep most of the day. She continues to report passive sucidal ideation at times but denies any plan or intent. She has been mostly in bed. No VH/AH. She denies opioid withdrawal symptoms now that she is back on methadone. Medication Compliance: Yes Review of Systems Review of Systems Constitutional : No Fever, No Chills ENT/Mouth : No Ear Pain, No Nasal Congestion, No sore throat Eyes: No Eye Pain, No Swelling, No Redness Cardiovascular : No Chest Pain, No SOB Respiratory : No Cough, No Sputum, No Dyspnea Gastrointestinal : No Nausea, No Vomiting, No Diarrhea, No Hematochezia, No Melena Genitourinary : No Dysuria, No Urinary Frequency, No Hematuria Musculoskeletal : No Myalgias Skin : No Skin Lesions, No rash Neuro : No Weakness, No Numbness, No Paresthesias, No Dizziness, No Headache Psych : positive Anxiety, positive Depression, positive SI no HI Heme/Lymph: No Lymphadenopathy Endocrine : No Polyuria, No Polydipsia All other systems reviewed and are negative Mental Status Exam Mental Status Exam Narrative: Appearance: wearing hospital gown, poor hygiene in NAD Behavior:calm, somnolent affecting level of engagement psychomotor: no agitation or retardation noted Speech:clear, normal rate/rhythm/volume, spontaneous Thought process:linear Thought content:no signs of psychosis, feeling hopeless Mood: depressed Affect: blunted SI:denies HI:denies VH/AH:none Delusions:none Insight/judgment:fair x 2. Memory/cog: alert, oriented x 3. Diagnostics Vital Signs (24Hr): Vital Signs - 24 hr 12/12/20 08:59 12/12/20 18:00 Temperature 97.9 F 97.6 F Pulse Rate 62 67 Respiratory Rate 16 16 Blood Pressure 178/92 H 149/93 H Pulse Oximetry 99 99 Body Mass Index 27.5 Labs Results: 12/09/20 17:38 12/09/20 17:38 Medications Medications Current Medications Generic Name Dose Route Start Last Admin Trade Name Freq PRN Reason Stop Dose Admin Acetaminophen 650 mg 12/09/20 21:53 Acetaminophen 325 Mg Tablet PO Q6H PRN Headache/Pain Mild Scale (1-3) Al Hydroxide/Mg Hydroxide 30 ml 12/09/20 22:28 Magnesium Hydrox/Alum Hydrox 30 Ml Oral.Susp PO Q6H PRN Heartburn/Nausea Baclofen 10 mg 12/10/20 10:58 Baclofen 10 Mg Tablet PO TID PRN muscle spasm Clonidine HCl 0.1 mg 12/10/20 10:58 Clonidine Hcl 0.1 Mg Tablet PO Q8H PRN opioid withdrawal Protocol Hydroxyzine HCl 50 mg 12/10/20 11:00 Hydroxyzine Hcl 25 Mg Tablet PO Q6H PRN Anxiety Loperamide HCl 2 mg 12/10/20 10:59 Loperamide Hcl 2 Mg Capsule PO Q4H PRN Loose Stool Magnesium Hydroxide 30 ml 12/09/20 22:28 Milk Of Magnesia 30 Ml Oral.Susp PO DAILY PRN Constipation Methadone HCl 60 mg 12/10/20 12:15 12/12/20 09:21 Methadone Hcl 20 Mg/2 Ml Oral.Conc PO 60 mg DAILY [facility] Administration Nicotine 21 mg 12/11/20 09:15 12/12/20 09:21 Nicotine 21 Mg Patch.Td24 TRANSDERMA 21 mg DAILY [facility] Administration Quetiapine Fumarate 50 mg 12/10/20 11:00 Quetiapine Fumarate 50 Mg Tablet PO Q6H PRN agitation/sleep Trazodone HCl 50 mg 12/09/20 21:53 Trazodone Hcl 50 Mg Tablet PO BEDTIME PRN Insomnia Venlafaxine HCl 37.5 mg 12/11/20 13:20 12/12/20 09:17 Venlafaxine Hcl Er 37.5 Mg Cap.Er.24h PO 37.5 mg DAILY [facility] Administration Allergies Allergies Allergy/AdvReac Type Severity Reaction Status Date / Time No Known Allergies Allergy Verified 08/21/20 05:57 Assessment & Plan Assessment & Plan (1) MDD (major depressive disorder), recurrent episode, moderate: Status: Acute Code(s): F33.1 - Major depressive disorder, recurrent, moderate (2) Opioid use disorder, moderate, dependence: Status: Acute Code(s): F11.20 - Opioid dependence, uncomplicated Assessment and Plan: Ms. Delgadillo is a 50 year-old woman with hx of MDD and opioid use disorder on Methadone who was brought by mother due to intentional OD on opioid with intent to end life. We discussed risks, benefits and alternative treatment options. Pt agreed to start effexor for depression. PLAN 1. Admit to M3 2. Continue methadone 60mg po daily 3. PRN meds for opioid withdrawal 4. Start Effexor 37.5 mg po daily 5. Aftercare planning 6. Obtain collateral information Greater than 50% of the session was spent on counseling and/or coordination of care Reason for contiued inpatient stay Substantial Risk for: harm to self
[2020-12-11 09:35] VITALS: BP 146/91; PULSE 70; RESP 16; TEMP 36.2; O2SAT 99
[2020-12-11] MEDS: Nicotine 21 MG PATCH.TD24 TRANSDERMA (09:47)
[2020-12-11] MEDS: methADONE HCl 20 MG/2 ML ORAL.CONC 60 MG PO (09:47)
[2020-12-11] MEDS: Venlafaxine HCl ER 37.5 MG CAP.ER.24H PO (13:48)
[2020-12-11 18:00] VITALS: BP 144/84; PULSE 68; RESP 16; TEMP 36.3; O2SAT 98
[2020-12-12 08:59] VITALS: BP 178/92; PULSE 62; RESP 16; TEMP 36.6; O2SAT 99
[2020-12-12] MEDS: Venlafaxine HCl ER 37.5 MG CAP.ER.24H PO (09:17)
[2020-12-12] MEDS: methADONE HCl 20 MG/2 ML ORAL.CONC 60 MG PO (09:21)
[2020-12-12] MEDS: Nicotine 21 MG PATCH.TD24 TRANSDERMA (09:21)
[2020-12-12 18:00] VITALS: BP 149/93; PULSE 67; RESP 16; TEMP 36.4; O2SAT 99
[2020-12-13 08:02] VITALS: BP 159/97; PULSE 63
[2020-12-13] MEDS: Nicotine 21 MG PATCH.TD24 TRANSDERMA (08:05)
[2020-12-13] MEDS: methADONE HCl 20 MG/2 ML ORAL.CONC 60 MG PO (08:05)
[2020-12-13] MEDS: Venlafaxine HCl ER 37.5 MG CAP.ER.24H PO (08:05)
--- NOTE | 2020-12-13 14:10 | HO.PSYCHPN ---
Subjective Subjective Date of Service: 12/13/20 Reason For Visit: Substance use disorder, SI Interim History: pt reports she is starting to feel better and is ready to go back to life and get a job. she states a big turning point for her was to hear from her mother that she is not a burden and that her mother wants her home living with her. she states this has led to the resolution of her SI. she denies any side effects from effexor or withdrawal symptoms from opioids. she agrees she is probably coming out of the cocaine withdrawal syndrome and so is a bit more awake and functional today. she would like to discharge soon and was referred to discuss aftercare with GENNA. educated her about IOP/PHP and strongly encouraged participation in such a program. per staff, pt attended 1/3 groups. spent a lot of the day sleeping. dep 12/16. upset at being unemployed. hypertensive yesterday. sleeping well. Mental Status Exam Mental Status Exam Narrative: dressed in street clothes, disheveled. some leg bouncing for PMA. cooperative, good eye contact. speech nml in rate, amount, loudness, tone, latency. thoughts linear and logical. affect flexible. mood improved. no SI. no HI/AVH expressed. Diagnostics Vital Signs (24Hr): Vital Signs - 24 hr 12/12/20 18:00 12/13/20 08:02 Temperature 97.6 F Pulse Rate 67 63 Respiratory Rate 16 Blood Pressure 149/93 H 159/97 H Pulse Oximetry 99 Body Mass Index 27.5 Labs Results: 12/09/20 17:38 12/09/20 17:38 Medications Medications Current Medications Generic Name Dose Route Start Last Admin Trade Name Ana PRN Reason Stop Dose Admin Acetaminophen 650 mg 12/09/20 21:53 Acetaminophen 325 Mg Tablet PO Q6H PRN Headache/Pain Mild Scale (1-3) Al Hydroxide/Mg Hydroxide 30 ml 12/09/20 22:28 Magnesium Hydrox/Alum Hydrox 30 Ml Oral.Susp PO Q6H PRN Heartburn/Nausea Baclofen 10 mg 12/10/20 10:58 Baclofen 10 Mg Tablet PO TID PRN muscle spasm Clonidine HCl 0.1 mg 12/10/20 10:58 Clonidine Hcl 0.1 Mg Tablet PO Q8H PRN opioid withdrawal Protocol Hydroxyzine HCl 50 mg 12/10/20 11:00 Hydroxyzine Hcl 25 Mg Tablet PO Q6H PRN Anxiety Loperamide HCl 2 mg 12/10/20 10:59 Loperamide Hcl 2 Mg Capsule PO Q4H PRN Loose Stool Magnesium Hydroxide 30 ml 12/09/20 22:28 Milk Of Magnesia 30 Ml Oral.Susp PO DAILY PRN Constipation Methadone HCl 60 mg 12/10/20 12:15 12/13/20 08:05 Methadone Hcl 20 Mg/2 Ml Oral.Conc PO 60 mg DAILY LISBETH Administration Nicotine 21 mg 12/11/20 09:15 12/13/20 08:05 Nicotine 21 Mg Patch.Td24 TRANSDERMA 21 mg DAILY LISBETH Administration Quetiapine Fumarate 50 mg 12/10/20 11:00 Quetiapine Fumarate 50 Mg Tablet PO Q6H PRN agitation/sleep Trazodone HCl 50 mg 12/09/20 21:53 Trazodone Hcl 50 Mg Tablet PO BEDTIME PRN Insomnia Venlafaxine HCl 37.5 mg 12/11/20 13:20 12/13/20 08:05 Venlafaxine Hcl Er 37.5 Mg Cap.Er.24h PO 37.5 mg DAILY LISBETH Administration Allergies Allergies Allergy/AdvReac Type Severity Reaction Status Date / Time No Known Allergies Allergy Verified 08/21/20 05:57 Assessment & Plan Assessment & Plan (1) MDD (major depressive disorder), recurrent episode, moderate: Status: Acute Code(s): F33.1 - Major depressive disorder, recurrent, moderate (2) Opioid use disorder, moderate, dependence: Status: Acute Code(s): F11.20 - Opioid dependence, uncomplicated Assessment and Plan: Ms. Delgadillo is a 50 year-old woman with hx of MDD and opioid use disorder on Methadone who was brought by mother due to intentional OD on opioid with intent to end life. We discussed risks, benefits and alternative treatment options. Pt agreed to start effexor for depression. PLAN 1. Admit to M3, keep safe, Q15 min checks. 2. Continue methadone 60mg po daily 3. PRN meds for opioid withdrawal 4. Started Effexor 37.5 mg po daily 5. HTNH - schedule clonidine 0.1 mg BID 6. aftercare planning Greater than 50% of the session was spent on counseling and/or coordination of care Reason for contiued inpatient stay Substantial Risk for: harm to self, inability to function and rapid decompensation
[2020-12-13] MEDS: cloNIDine HCL 0.1 MG TABLET PO ×2 (16:36→21:39)
[2020-12-13 21:30] VITALS: BP 123/84; PULSE 62; TEMP 36.3; O2SAT 97
[2020-12-13 21:39] VITALS: BP 123/84; PULSE 62
[2020-12-14] MEDS: methADONE HCl 20 MG/2 ML ORAL.CONC 60 MG PO (09:01)
[2020-12-14 09:03] VITALS: BP 135/93
[2020-12-14] MEDS: Venlafaxine HCl ER 37.5 MG CAP.ER.24H PO (09:03)
[2020-12-14] MEDS: cloNIDine HCL 0.1 MG TABLET PO (09:03)
[2020-12-14] MEDS: Nicotine 21 MG PATCH.TD24 TRANSDERMA (09:06)
[2020-12-14 10:06] VITALS: BP 135/93; PULSE 68; O2SAT 98
--- NOTE | 2020-12-14 12:32 | HO.PSYCHPN ---
Subjective Subjective Date of Service: 12/14/20 Reason For Visit: Substance use disorder, SI Interim History: pt states she was hoping to leave today. her mother visited her this morning, which went well. ambivalent about PHP if it is 5 hours daily, open to a program which might be 3 hours daily. referred to speak with SW to develop dispo plan for tomorrow. she states she has a counselor via her methadone program, but she does need a prescriber. she was started on effexor XR here, 37.5 mg daily. she has tolerated it the past few days and is willing to increase her dose to 75 mg daily. in addition, she is aware her BP has been elevated the past couple of years. she is willing to give the clonidine patch a try. no other complaints or requests. per staff,pleasant, isolative. withdrawn. eating well. slept through the night. Mental Status Exam Mental Status Exam Narrative: dressed in street clothes, disheveled. no PMA/PMR. cooperative, good eye contact. speech nml in rate, amount, loudness, tone, latency. thoughts linear and logical. affect flexible. mood disappointed to not go home. no SI/HI/AVH. Diagnostics Vital Signs (24Hr): Vital Signs - 24 hr 12/13/20 21:30 12/13/20 21:39 12/14/20 09:03 Temperature 97.3 F Pulse Rate 62 62 Blood Pressure 123/84 123/84 135/93 H Pulse Oximetry 97 12/14/20 10:06 Temperature Pulse Rate 68 Blood Pressure 135/93 H Pulse Oximetry 98 Body Mass Index 27.5 Labs Results: 12/09/20 17:38 12/09/20 17:38 Medications Medications Current Medications Generic Name Dose Route Start Last Admin Trade Name Freq PRN Reason Stop Dose Admin Acetaminophen 650 mg 12/09/20 21:53 Acetaminophen 325 Mg Tablet PO Q6H PRN Headache/Pain Mild Scale (1-3) Al Hydroxide/Mg Hydroxide 30 ml 12/09/20 22:28 Magnesium Hydrox/Alum Hydrox 30 Ml Oral.Susp PO Q6H PRN Heartburn/Nausea Baclofen 10 mg 12/10/20 10:58 Baclofen 10 Mg Tablet PO TID PRN muscle spasm Clonidine 0.1 mg 12/14/20 12:00 Clonidine 0.1 Mg Patch.Tdwk TRANSDERMA We@0900 [facility] Protocol Clonidine HCl 0.1 mg 12/10/20 10:58 Clonidine Hcl 0.1 Mg Tablet PO Q8H PRN opioid withdrawal Protocol Hydroxyzine HCl 50 mg 12/10/20 11:00 Hydroxyzine Hcl 25 Mg Tablet PO Q6H PRN Anxiety Loperamide HCl 2 mg 12/10/20 10:59 Loperamide Hcl 2 Mg Capsule PO Q4H PRN Loose Stool Magnesium Hydroxide 30 ml 12/09/20 22:28 Milk Of Magnesia 30 Ml Oral.Susp PO DAILY PRN Constipation Methadone HCl 60 mg 12/10/20 12:15 12/14/20 09:01 Methadone Hcl 20 Mg/2 Ml Oral.Conc PO 60 mg DAILY LISBETH Administration Nicotine 21 mg 12/11/20 09:15 12/14/20 09:06 Nicotine 21 Mg Patch.Td24 TRANSDERMA 21 mg DAILY LISBETH Administration Quetiapine Fumarate 50 mg 12/10/20 11:00 Quetiapine Fumarate 50 Mg Tablet PO Q6H PRN agitation/sleep Trazodone HCl 50 mg 12/09/20 21:53 Trazodone Hcl 50 Mg Tablet PO BEDTIME PRN Insomnia Venlafaxine HCl 75 mg 12/15/20 09:00 Venlafaxine Hcl Er 75 Mg Cap.Er.24h PO DAILY [facility] Allergies Allergies Allergy/AdvReac Type Severity Reaction Status Date / Time No Known Allergies Allergy Verified 08/21/20 05:57 Assessment & Plan Assessment & Plan (1) MDD (major depressive disorder), recurrent episode, moderate: Status: Acute Code(s): F33.1 - Major depressive disorder, recurrent, moderate (2) Opioid use disorder, moderate, dependence: Status: Acute Code(s): F11.20 - Opioid dependence, uncomplicated Assessment and Plan: Ms. Delgadillo is a 50 year-old woman with hx of MDD and opioid use disorder on Methadone who was brought by mother due to intentional OD on opioid with intent to end life. We discussed risks, benefits and alternative treatment options. Pt agreed to start effexor for depression. PLAN 1. Admit to M3, keep safe, Q15 min checks. 2. Continue methadone 60mg po daily 3. PRN meds for opioid withdrawal 4. Started Effexor 37.5 mg po daily x 3 days, increased to 75 mg daily as of 12/15. 5. HTN - scheduled clonidine 0.1 mg BID 12/13, converted to clonidine 0.1 mg/24H patch on 12/14. 6. aftercare planning Greater than 50% of the session was spent on counseling and/or coordination of care Reason for contiued inpatient stay Substantial Risk for: harm to self, inability to function and rapid decompensation
[2020-12-14 13:23] VITALS: BP 108/75; PULSE 63
[2020-12-14] MEDS: cloNIDine 0.1 MG PATCH.TDWK TRANSDERMA (13:23)
[2020-12-15 06:00] VITALS: BP 138/89; PULSE 62; RESP 18; TEMP 36.2; O2SAT 100
[2020-12-15] MEDS: Nicotine 21 MG PATCH.TD24 TRANSDERMA (08:38)
[2020-12-15] MEDS: methADONE HCl 20 MG/2 ML ORAL.CONC 60 MG PO (08:39)
[2020-12-15] MEDS: Venlafaxine HCl ER 75 MG CAP.ER.24H PO (08:40)
--- NOTE | 2021-05-15 15:14 | P.DS_ITS ---
DS: Providers Provider Date of Service: 12/15/20 Date of admission: 12/09/20 22:27 Primary care physician: Eduar Melton MD DS: Diagnosis Discharge Diagnosis (1) MDD (major depressive disorder), recurrent episode, moderate: Status: Acute (2) Opioid use disorder, moderate, dependence: Status: Acute DS: Medications Discharge Medications Home Medications: Home Medications Medication Instructions Recorded Confirmed methadone 10 mg/mL oral syringe 60 mg 12/10/20 (FOR ORAL USE ONLY) Previous Rx's Medication Instructions Recorded clonidine 0.1 mg/24 hr weekly 0.1 mg TRANSDERMAL We@0900 #1 ea 12/15/20 transdermal patch naloxone 4 mg/actuation nasal 4 mg INTRANASAL Q2M PRN #2 ea 12/15/20 spray (Narcan) nicotine 21 mg/24 hr daily 21 mg TRANSDERMAL DAILY #30 ea 12/15/20 transdermal patch venlafaxine 75 mg capsule,extended 75 mg PO DAILY #30 cap 12/15/20 release 24 hr Mental Status Exam Mental Status Exam Narrative: dressed in street clothes, disheveled. no PMA/PMR. cooperative, good eye contact. speech nml in rate, amount, loudness, tone, latency. thoughts linear and logical. affect flexible. mood euthymic. no SI/HI/AVH. DS: Summary Hospital Course Hospital Course: per 12/09 admission note: HPI Subjective Notes: Conditional Voluntary Narrative: Ms. Delgadillo is a 50 year-old woman with hx of MDD, opioid use disorder who was brought to [facility] by her mother after intentional OD on opioid. In the ED, her utox was positive for opioid, fentanyl and cocaine. On the unit, Ms. Delgadillo presents as very tired, somnolent, participation in interview is limited due to these factors. Pt reports she has been feeling extremely depressed and OD was with intent to end her life. On the unit, pt denies suicidal ideation but endorses feeling very hopeless. She reports she currently lives with her mother. She does not have a job and this has affected her mental health. She reports she is currently on methadone and would like to continue. Dose of methadone was verified and pt started on 60mg po daily. Past Psychiatric History: Inpatient: none OP: none Suicide attempts: none Medical Evaluation Reviewed: Yes PMFSH Medical History? Substance abuse Social History: Has two adult children in their 30's. lives with mother. currently not working. Precis: Ms. Delgadillo is a 50 year-old woman with hx of MDD and opioid use disorder on Methadone who was brought by mother due to intentional OD on opioid with intent to end life. We discussed risks, benefits and alternative treatment options. Pt agreed to start effexor for depression. PLAN 1. Admit to M3, keep safe, Q15 min checks. 2. Continue methadone 60mg po daily 3. PRN meds for opioid withdrawal? 4. Started Effexor 37.5 mg po daily x 3 days, increased to 75 mg daily as of 12/15. 5. HTN - scheduled clonidine 0.1 mg BID 12/13, converted to clonidine 0.1 mg/24H patch on 12/14. 6. discharged to home 12/15. Time Spent with Patient Time attestation: Total time spent providing and/or coordinating discharge services: Discharge Plan Discharge Patient Disposition: Home, Self-Care Discharge Diagnosis: MDD, recurrent, moderate Referrals: Blanche Potts (therapy intake) [Other] - 12/22/20 1:00 pm (Telehealth appointment) Thaddeus Sánchez (psychiatrist) [Other] - 01/11/21 8:00 am (Telehealth appointment) Thaddeus Sánchez (psychiatrist) [Other] - 02/07/21 9:40 am (Telehealth appointment) [facility] (PHP) [Other] (They will reach out to provide the intake appointment) Eduar Melton MD [Primary Care Provider] - 1 Week Discharge Medications: New nicotine 21 mg/24 hr Patch 24 Hour 21 mg transdermal DAILY Qty: 30 0RF clonidine 0.1 mg/24 hr Patch Weekly 0.1 mg transdermal We@0900 Qty: 1 0RF Protocol: Hold for SBP< HOLD for SBP < : 90 venlafaxine 75 mg Capsule,Extended Release 24hr 75 mg PO DAILY Qty: 30 0RF Narcan 4 mg/actuation spray,non-aerosol 4 mg intranasal Q2M PRN (Reason: opioid overdose) Qty: 2 1RF Rx Instructions: spray 1 dose into ONE nostril; alternate nostrils w each dose until help arrives Continued methadone 10 mg/mL Syringe 60 mg 0RF Label Comments: [facility] in [place] Discharge Orders: Discharge Order (Routine); Ordered 12/15/20 Ordered By: Tara Orozco Diet: regular diet Activity on Discharge: As tolerated Stand Alone Forms: Patient Portal Discharge page, Community Support Care Plan Goals: 1. Maintain mood 2. No SI/HI. 3. Harm reduction- take home narcan Health Concerns: follow up with PCP Plan of Treatment: 1. take medications as prescribed 2. follow up with referrals 3. Go to nearest ED or 911 in event of emergency Assessment: Pt with stable mood. No SI/HI. No signs of aggression towards self or others. Discharge Date/Time: 12/15/20 14:00
== END 2020-12-15 14:00 | disposition home or self-care (01) | DRG 751 ==
LOC: HO.ED 16:45 → HO.PADLT16 23:52
PROVIDERS: Admitting Provider Registered Nurse; Emergency Provider Emergency Medicine; PCP Internal Medicine; Visit Provider Psychiatry & Neurology Psychiatry
DX: F33.1 Major depressive disorder, recurrent, moderate (principal); R45.851 Suicidal ideations; F11.20 Opioid dependence, uncomplicated; F17.210 Nicotine dependence, cigarettes, uncomplicated; Z71.6 Tobacco abuse counseling; Z59.0 Homelessness; Z20.822 Contact with and (suspected) exposure to COVID-19; Z79.899 Other long term (current) drug therapy
CPT/HCPCS: 36415; 80048; 80076; 80307; 82077; 85025; 87635; 93005; 99283; 99285

== ENCOUNTER 2021-01-24 15:06 | Emergency (ER) | payer OTHER, SELFPAY | END 2021-01-24 17:16 | disposition left against medical advice (07) | PROVIDERS: Emergency Provider Emergency Medicine; PCP Internal Medicine | DX: T14.90XA Injury, unspecified, initial encounter (principal); X58.XXXA Exposure to other specified factors, initial encounter; Y93.9 Activity, unspecified; Y92.89 Other specified places as the place of occurrence of the external cause; Y99.0 Civilian activity done for income or pay ==

== ENCOUNTER 2021-01-24 20:52 | Emergency (ER) | payer OTHER, SELFPAY ==
[2021-01-24 20:56] VITALS: BP 150/92; PULSE 77; RESP 17; TEMP 36.8; O2SAT 98; BMI 27.3
--- NOTE | 2021-01-24 21:31 | ED_ITS ---
HPI - Head Injury General Chief complaint: Head Injury Stated complaint: head inj Time Seen by Provider: 01/24/21 21:31 Source: patient Mode of arrival: ambulatory History of Present Illness HPI Narrative: 50-year-old female with no significant past medical history presenting to the ED complaining of a right forehead pain and increased fatigue s/p being hit in head with metal cage at work Saturday night. Reports co-worker opened cage door which hit her in head, reports initial lightheadedness and headache since incident which has been improving with Motrin. Denies nausea, vomiting, numbness, tingling, weakness Denies taking anticoagulation MD Complaint: head injury Related Data Home Medications Medication Instructions Recorded Confirmed methadone 10 mg/mL oral syringe 60 mg 12/10/20 (FOR ORAL USE ONLY) Previous Rx's Medication Instructions Recorded clonidine 0.1 mg/24 hr weekly 0.1 mg TRANSDERMAL We@0900 #1 ea 12/15/20 transdermal patch naloxone 4 mg/actuation nasal 4 mg INTRANASAL Q2M PRN #2 ea 12/15/20 spray (Narcan) nicotine 21 mg/24 hr daily 21 mg TRANSDERMAL DAILY #30 ea 12/15/20 transdermal patch venlafaxine 75 mg capsule,extended 75 mg PO DAILY #30 cap 12/15/20 release 24 hr Allergies Allergy/AdvReac Type Severity Reaction Status Date / Time No Known Allergies Allergy Verified 01/24/21 20:56 Review of Systems Review of Systems: Constitutional: No Fever, No Chills, No Fatigue, No Malaise ENT/Mouth: No Hearing loss, No Ear Pain, No Nasal Congestion, No Hoarseness, No sore throat Eyes: No Eye Pain, No Swelling, No Redness, No Discharge, No Vision Changes Cardiovascular: No Chest Pain, No SOB Respiratory: No Cough Gastrointestinal: No Nausea, No Vomiting, No Diarrhea, No Constipation, No Abdominal pain Musculoskeletal: No joint pain, No Myalgias, No Joint Swelling Skin: No Skin Lesions, No rash Neuro: No Weakness, No Numbness, No Paresthesias, No Loss of Consciousness, +lightheadedness (resolved), + Headache Yes all other systems are reviewed and are negative Neurologic: Denies Abnormal speech present PMFSH Past Medical History Attestation statement: The following information was validated with the patient. Medical History Substance abuse Social History Social History Household Members: Family Housing: Apartment Do you presently have visiting nurse or other home services: No Alcohol intake: never Patient Tobacco Use Status: Current everyday Tobacco user Tobacco use type: Cigarette Cigarette Packs Per Day: 1 Cigarettes Per Day: 20.0 e-Cigarette/Vaping Use: Former Use Second Hand Smoke Exposure: Yes Substance Use Type: Crack/Cocaine Advance Directives: No Advance Directives Information Provided: No Patient : No service: No Current occupational status: disabled Sexual orientation: Straight/Heterosexual Physical Exam Vital Signs: Vital Signs: Last Vital Signs Temp 98.2 F 01/24/21 20:56 Pulse 77 01/24/21 20:56 Resp 17 01/24/21 20:56 BP 150/92 H 01/24/21 20:56 Pulse Ox 98 01/24/21 20:56 Body Mass Index 27.3 Const: General: cooperative and healthy appearing Orientation/consciousness: patient oriented x3 Limitations: no limitations HENMT: Other: + tenderness to palpation to right eyebrow. No appreciable deformity/step-off, no crepitus, no erythema no ecchymosis Head: Yes normal to inspection, Yes atraumatic, No Calderon's sign, No contusion and No raccoon eyes Ears: hearing grossly normal bilaterally General nose exam: Normal external nose present Face and sinus: Yes normal facial exam Mouth: Normal oral and palatal mucosa present Eyes: General: appearance normal, both eyes and all related structures Conjunctivae: conjunctivae normal Sclerae: sclerae normal Pupils: Equal, round and reactive pupils present EOM: EOMs intact bilaterally Neck: Other: No midline cervical spinous tenderness Neck: Yes normal visual inspection, Yes no meningeal signs and Yes supple Resp: Effort & Inspection: normal respiratory effort and no respiratory distress Cardio: Rate: regular rate GI: Inspection: Yes normal to inspection Skin: Rashes: no rashes Wounds: no wounds Neuro: General: patient oriented x3, gait normal, tone normal, moves all extremities, no meningeal signs, no focal motor deficits and CN's II-XI intact bilaterally Cranial nerves: Yes CN's II-XII intact bilaterally and Yes Equal, round and reactive pupils present Cognition (Neuro): normal cognition Speech: No Abnormal speech present Gait exam (Neuro): Normal gait present Motor exam (neuro): 5/5 motor strength present throughout Coordination: [id number] test normal Romberg Test: Negative Extrem: General: Yes normal to inspection MDM - Head Injury MDM Narrative Medical decision making narrative: 50-year-old female with no significant past medical history presenting to the ED complaining of a right forehead pain and increased fatigue s/p being hit in head with metal cage at work Saturday night. On exam VSS, NAD/well-appearing, physical exam as above, [place] head CT rule negative. No evidence of trauma. No focal neuro deficits. Likely concussion vs contusion. Low concern for ICH does fracture Medical Records Attestation: I reviewed the patient's medical records. Lab Data Attestation: I reviewed the patient's lab results. Discharge Plan Discharge Clinical Impression: Closed head injury Qualifiers: Encounter type: initial encounter Qualified Code(s): S09.90XA - Unspecified injury of head, initial encounter Patient Disposition: Home, Self-Care Instructions: Head Injury (ED) Additional Instructions: Take Tylenol and Motrin at home Practice brain rest, avoid bright lights, computer screens/phone light Please follow-up with were connection Be developed severe headache, nausea/vomiting that is persistent, weakness or fever return to the ED Prescriptions: No Action methadone 10 mg/mL Syringe 60 mg RF: 0 nicotine 21 mg/24 hr Patch 24 Hour 21 mg transdermal DAILY Qty: 30 RF: 0 clonidine 0.1 mg/24 hr Patch Weekly 0.1 mg transdermal We@0900 Qty: 1 RF: 0 venlafaxine 75 mg Capsule,Extended Release 24hr 75 mg PO DAILY Qty: 30 RF: 0 Narcan 4 mg/actuation spray,non-aerosol 4 mg intranasal Q2M PRN (Reason: opioid overdose) Qty: 2 RF: 1 Referrals: Eduar Melton MD [Primary Care Provider] - 2 days [facility] [Outside] - 2 days
== END 2021-01-24 22:11 | disposition home or self-care (01) ==
PROVIDERS: Emergency Provider Emergency Medicine; PCP Internal Medicine
DX: S09.90XA Unspecified injury of head, initial encounter (principal); W22.8XXA Striking against or struck by other objects, initial encounter; Y93.9 Activity, unspecified; Y92.89 Other specified places as the place of occurrence of the external cause; Y99.0 Civilian activity done for income or pay
CPT/HCPCS: 99283

== ENCOUNTER 2022-12-04 12:45 | Outpatient (REF) | payer OTHER, SELFPAY ==
--- NOTE | ~2022-12-04 | XR_ITS ---
EXAMINATION: XR FOOT, LEFT CLINICAL INFORMATION: Pain COMPARISON: None available. TECHNIQUE: AP, lateral, and oblique views of the left foot. FINDINGS: Bone alignment is normal. No fracture or dislocation. Mild degenerative changes of the first MTP joint with small osteophytes. Calcaneal spurs. XR/XR foot LT min 3V IMPRESSION: Mild degenerative changes of the first MTP joint. Calcaneal spurs.
== END 2022-12-04 12:46 | disposition home or self-care (01) ==
LOC: HO.HHCX 12:45
PROVIDERS: Visit Provider General Practice
DX: M79.672 Pain in left foot (principal)
CPT/HCPCS: 73630

== ENCOUNTER 2022-12-05 12:32 | Outpatient (REF) | payer OTHER, SELFPAY ==
[2022-12-05 16:15] LABS: Alanine Aminotransferase 21 U/L (0-31); Alkaline Phosphatase 100 U/L (39-117); Anion Gap 11 (12-20); Aspartate Amino Transferase 16 U/L (5-31); Bilirubin Direct 0.2 mg/dL (0.0-0.5); Bilirubin Total 0.4 mg/dL (0.0-1.0); Blood Urea Nitrogen 9 mg/dL (9-16); Calcium 9.6 mg/dL (8.4-10.2); Carbon Dioxide 31 mmol/L (22-29); Chloride 103 mmol/L (96-108); Cholesterol 192 mg/dL (<200); Estimated Glomerular Filt Rate > 60; Glucose Random 81 mg/dL (60-115); HDL Cholesterol 55 mg/dL (>40); LDL Cholesterol Calculated 117 mg/dL (<100); Potassium 4.2 mmol/L (3.3-5.1); Sodium 141 mmol/L (135-145); Total Protein 8.1 g/dL (6.5-8.0); Triglycerides 100 mg/dL (<150)
[2022-12-05 16:21] LABS: Thyroid Stimulating Hormone 0.86 uIU/mL (0.32-4.0)
== END 2022-12-05 12:33 | disposition home or self-care (01) ==
LOC: HO.CHCLDS 12:32
PROVIDERS: Visit Provider Internal Medicine
DX: R03.0 Elevated blood-pressure reading, without diagnosis of hypertension (principal)
CPT/HCPCS: 36415; 80048; 80061; 80076; 84443

== ENCOUNTER 2024-04-15 13:42 | Outpatient (REF) | payer OTHER, SELFPAY ==
--- NOTE | ~2024-04-15 | XR_ITS ---
EXAMINATION: XR CHEST CLINICAL INFORMATION: cough COMPARISON: X-ray dated August 27, 2020 TECHNIQUE: 2 views of the chest were obtained. FINDINGS: No consolidation, pleural effusion or pneumothorax. Cardiomediastinal silhouette demonstrates calcified plaque Arctic arch. Multilevel thoracic and upper lumbar spondylosis. Increased kyphotic deformity mid to lower thoracic spine. Vascular clips right upper quadrant abdomen. XR/XR chest 2V IMPRESSION: No acute airspace disease. Electronically signed by: Jd Rodriguez MD 04/15/2024 03:33 PM EST
== END 2024-04-15 13:43 | disposition home or self-care (01) ==
LOC: HO.HHCL 13:42
PROVIDERS: Visit Provider Internal Medicine
DX: R05.1 Acute cough (principal)
CPT/HCPCS: 71046

== ENCOUNTER → 2024-04-15 14:11 | Outpatient (BNV) | payer SELFPAY | PROVIDERS: Visit Provider Radiology Diagnostic Radiology | DX: R05.1 Acute cough (principal) | CPT/HCPCS: 71046 ==

== ENCOUNTER 2025-03-20 10:38 | Outpatient (REF) | payer OTHER, SELFPAY ==
--- OUTSIDE RECORDS SUMMARY | 2025-03-19 14:30 | XMS_ITS | Encounter Summary ---
Author Organization [employer] Address [address] [facility] [address] [place] [address] Care Team Providers Care Assistant Women'S Soccer Coach Name Role Phone Eduar Melton MD Primary Care Provider [phone] Reason for Visit * Reason Comments Hip Pain Encounter Details Date Type Department Care Team ([facility] Contact Info) Description 03/19/2025 2:30 PM EST Office Visit [facility] P[facility]S [address] [place] [address] Eduar Melton MD [address] [place] [address] Right hip pain (Primary Dx); Muscle spasm; Thoracic spondylosis; Lumbar spondylosis; Primary hypertension; Primary hypertension Social History Tobacco Use Types Packs/Day Years Used Date Smoking Tobacco: Former Cigarettes 0.5 30 1 983 - 2012 Smokeless Tobacco: Never Comments:Currently vape: 6 m g of nicotine, 4 ml a day Depression Answer Date Recorded Patient Health Questionnaire-9 Score 16 12/05/2022 Depression Answer Date Recorded Patient Health Questionnaire-2 Score 5 12/05/2022 Comments Unknown Sex and Gender Information Value Date Recorded Sex Assigned at Female 02/05/2022 10:21 AM EDT Legal Sex Female 10:21 AM EDT Gender Identity Female 02/05/2022 10:21 AM EDT Sexual Orientation Straight 02/05/2022 10 :21 AM EDT documented as of this encounter Last Filed Vital Signs Vital Sign Reading Time Taken Comments Blood Pressure 116/66 03/19/2025 2:43 PM EST Pulse 66 03/19/2025 2:43 PM EST Temperature - - Respiratory Rate 20 03/19/2025 2:43 PM EST Oxygen Saturation 98% 03/19/2025 2:43 PM EST Inhaled Oxygen Concentration - - Weight 83.5 kg (184 lb) 03/19/2025 2:43 PM EST Height 152.4 cm (5') 03/19/2025 2:43 PM EST Body Mass Index 35.94 03/19/2025 2:43 PM EST documented in this encounter Progress Notes * Eduar Melton MD - 03/19/2025 2:30 PM EST ANTOINETTE Delgadillo is a 54 y.o. female who presents for Hip Pain. HPI Note from triage reviewed: TC placed to patient. Patient reported constant right hip pain and difficulty ambulating x 2 months. Denies any injury to the site. Patient reported she wants to be seen by a provider for further evaluation and a possible referral to physical therapy. RN scheduled an appt with patient provider for03/19/25 at 230 pm. Patient agreed to the appt. RN advised patient if her symptoms worsen prior to her appt to go to the ED for further evaluation. Patient to F/U PRN. History obtained from Ms Maria Isabel Delgadillo - Right hip pain for 3 months, initially thought due to sleeping position - Pain location described as in the joint, difficult to localize at first - Pain intensity variable, never fully resolves - Pain worsened by standing, walking is tolerable, sitting is comfortable - Pain sometimes present upon waking - Denies skin rash - Denies trauma or falls - Ibuprofen and acetaminophen provide partial relief but pain persists - On two blood pressure medications, working well Problem List[1] Allergies[2] Medications Ordered Prior to Encounter[3] Review of Systems Constitutional: Negative for appetite change, chills and diaphoresis. Respiratory: Negative for cough, choking and shortness of breath. Cardiovascular: Negative for leg swelling. Musculoskeletal: Positive for myalgias. Right hip pain Skin: Negative for rash and wound. OBJECTIVE There were no vitals filed for this visit. Physical Exam Constitutional: General: She is not in acute distress. Appearance: Normal appearance. She is not ill-appearing, toxic-appearing or diaphoretic. Pulmonary: Effort: Pulmonary effort is normal. Musculoskeletal: Left hip: Normal. Comments: JULIO test positive on the right Neurological: General: No focal deficit present. Mental Status: She is alert. Assessment/Plan Assessment/Plan Diagnoses and all orders for this visit: Right hip pain - XR Hip 2 or 3 Views Right; Future - meloxicam (Mobic) 15 MG tablet; Take 1 tablet (15 mg) by mouth Once per day. Muscle spasm - tiZANidine (Zanaflex) 4 MG tablet; Take 1 tablet (4 mg) by mouth every 6 (six) hours if needed for muscle spasms. - meloxicam (Mobic) 15 MG tablet; Take 1 tablet (15 mg) by mouth Once per day. Thoracic spondylosis - tiZANidine (Zanaflex) 4 MG tablet; Take 1 tablet (4 mg) by mouth every 6 (six) hours if needed for muscle spasms. Lumbar spondylosis - tiZANidine (Zanaflex) 4 MG tablet; Take 1 tablet (4 mg) by mouth every 6 (six) hours if needed for muscle spasms. - meloxicam (Mobic) 15 MG tablet; Take 1 tablet (15 mg) by mouth Once per day. Primary hypertension Comments: Start Norvasc DASH diet Follow up in 1 month. Orders: - amLODIPine (Norvasc) 5 MG tablet; Take 1 tablet (5 mg) by mouth Once per day. - losartan (Cozaar) 25 MG tablet; Take 1 tablet (25 mg) by mouth Once per day. Primary hypertension Comments: Improving Continue with Norvasc. Start losartan Nurse visit in 1 month for BP check Orders: - amLODIPine (Norvasc) 5 MG tablet; Take 1 tablet (5 mg) by mouth Once per day. - losartan (Cozaar) 25 MG tablet; Take 1 tablet (25 mg) by mouth Once per day. Right hip pain: - Differential diagnosis includes bursitis, tendon strain, muscle strain, and osteoarthritis. True hip pain may originate from the joint, but location described suggests possible extra-articular etiology. - Ordered right hip X-ray. Will consider physical therapy if imaging shows osteoarthritis. If X-rayis normal, muscle strain or tendon injury will be considered. Prescribed muscle relaxant and anti-inflammatory medication. Will review kidney function prior to initiation of anti-inflammatory therapy. Advised trial of medication for symptom relief. Muscle spasm: - Muscle spasm associated with right hip pain. - Prescribed muscle relaxant for symptomatic relief. Primary hypertension: - Hypertension well controlled on current medication regimen. - Continued current antihypertensive therapy. Provided 90-day prescription refill. This note was drafted using Ambient (AI) technology. The patient/patient's guardian has been informed and has consented to the use of this technology: Yes [1] Patient Active Problem List Diagnosis Major depressive disorder Hypertension Stimulant use disorder [2] No Known Allergies [3] Current Outpatient Medications on File Prior to Visit Medication Sig Dispense Refill amLODIPine (Norvasc) 5 MG tablet Take 1 tablet (5 mg) by mouth Once per day. 30 tablet 11 Blood Pressure kit To check the BP daily 1 kit 0 buPROPion SR (Wellbutrin SR) 150 MG 12 hr tablet Take 1 tablet (150 mg) by mouth 2 times daily. Do not crush, chew, or split. 60 tablet 11 Diclofenac Sodium 1 % gel To apply to the affected area 3 times a day 100 g 1 guaiFENesin (Mucinex) 600 MG 12 hr tablet Take 2 tablets (1,200 mg) by mouth 2 times daily. Do not crush, chew, or split. 120 tablet 11 losartan (Cozaar) 25 MG tablet Take 1 tablet (25 mg) by mouth Once per day. 30 tablet 11 nicotine (Nicoderm CQ) 7 MG/24HR patch Place 1 patch on the skin 1 (one) time each day at the same time. 30 patch 0 tiZANidine (Zanaflex) 4 MG tablet Take 1 tablet (4 mg) by mouth every 6 (six) hours if needed for muscle spasms for up to 10 days. 30 tablet 0 No current facility-administered medications on file prior to visit. documented in this encounter Plan of Treatment Scheduled Orders Name Type Priority Associated Diagnoses Orde r Schedule XR Hip 2 or 3 Views Right Imaging Routine Right hip pain Expected: 03/19/2025, Expires: 03/19/2026 documented as of this encounter Visit Diagnoses Diagnosis Right hip pain- Primary Pain in joint, pelvic region and thigh Muscle spasm Spasm of muscle Thoracic spondylosis Lumbar spondylosis Lumbosacral spondylosis without myelopathy Primary hypertension Unspecified essential hypertension documented in this encounter Additional Health Concerns Assessment Noted Time PHQ-9 Depression Total Score: 16 023 11:23 AM EDT documented as of this encounter Care Teams Assistant Women'S Soccer Coach Relationship Specialty Start Date End Date Eduar Melton MD [address] [place] [id number] PCP - General Internal Medicine 04/08/18 documented as of this encounter
--- NOTE | ~2025-03-20 | XR_ITS ---
EXAMINATION: XR HIP, RIGHT CLINICAL INFORMATION: right hip pain COMPARISON: None available. TECHNIQUE: Two views of the right hip. FINDINGS: No fracture. Alignment is anatomic. Hip joint space is maintained. No soft tissue calcifications. XR/XR hip RT min 2V IMPRESSION: No acute findings Electronically signed by: Rohan Nuñez MD 03/22/2025 10:31 AM BRIANNE
--- OUTSIDE RECORDS SUMMARY | 2025-03-20 10:41 | XMS_ITS | Encounter Summary ---
Author Organization [employer] Address [address] [facility] [address] [place] [address] Care Team Providers Care Attendance Officer Name Role Phone Eduar Melton MD Primary Care Provider [phone]- [phone] Encounter Details Date Type Department Care Team (Late st Contact Info) Description 12/06/2022 Orders Only [facility]S [address] [place], [place] [phone] Eduar Melton MD [address] [place] [address] Left foot pain (Primary Dx) Social History Tobacco Use Types Packs/Day Years Used Date Smoking Tobacco: Former Cigarettes 0.5 30 1 - 2012 Smokeless Tobacco: Never Comments:Currently vape: [...] AM EDT documented as of this encounter Plan of Treatment Not on file documented as of this encounter Visit Diagnoses Diagnosis Left foot pain- Primary Pain in soft tissues of limb documented in this encounter Additional Health Concerns Assessment Noted Time PHQ-9 Depression Total Score: 16 12/05/ 023 11:23 AM EDT documented as of this encounter Care Teams Attendance Officer Relationship Specialty Start Date End Date Eduar Melton MD [address] [place] [id number] PCP - General Internal Medicine 04/08/18 documented as of this encounter
--- OUTSIDE RECORDS SUMMARY | 2025-03-20 10:41 | XMS_ITS | Clinical Summary ---
Author Organization [address] [facility] Address [address] [place] [address] Phone Care Team Providers Care Insulating Machine Operator Name Role Phone Eduar Melton MD Primary Care Provider [phone] Allergies No known active allergies Medications amLODIPine (NORVASC) 5 mg tablet Take 1 tablet (5 mg total) by mouth daily. 04/14/2024 Active buPROPion SR (WELLBUTRIN SR) 150 mg 12 hr tablet Take 1 tablet (150 mg total) by mouth 2 times daily. 12/05/2022 Active guaiFENesin (MUCINEX) 600 mg 12 hr tablet Take 2 tablets (1,200 mg total) by mouth 2 times daily. 04/14/2024 Active losartan (COZAAR) 25 mg tablet Take 1 tablet (25 mg total) by mouth daily. 06/01/2024 Active tiZANidine (ZANAFLEX) 4 mg tablet Take 1 tablet (4 mg total) by mouth every 6 hours as needed. 06/01/2024 Active Encounters Date Type Department Care Team Description 01/01/2025 9:00 AM EDT Office Visit [facility] - [place] [address] [facility] [address] [place] [address] Sergei Brasher, DPM Dermatophytosis of nail (Primary Dx); Tinea pedis of both feet; Pain in toe of right foot; Pain in toe of left foot; Bilateral femoral artery stenosis (CMS/HCC V24); Hammer toe of left foot; Acquired hammer toe of right foot from Last 3 Months Social History Tobacco Use Types Packs/Day Years Used Date Smoking Tobacco: Never Assessed Comments Unknown Sex and Gender Information Value Date Recorded Sex Assigned at Not on file Legal Sex Female 7:44 AM EST Gender Identity Not on file Sexual Orientation Not on file Last Filed Vital Signs Vital Sign Reading Time Taken Comments Blood Pressure - - Pulse - - Temperature - - Respiratory Rate - - Oxygen Saturation - - Inhaled Oxygen Concentration - - Weight 81.6 kg (180 lb) 08/27/2024 10:17 AM EDT Height 152.4 cm (5') 08/27/2024 10:17 AM EDT Body Mass Index 35.15 08/27/2024 10:17 AM EDT Plan of Treatment Upcoming Encounters Date Type Department Care Team (Late st Contact Info) Description 03/29/2025 9:00 AM EST Office Visit Orthopedic Surgery - [place] [address] [address] Sergei Brasher, DPM [address] [address] Health Maintenance Due Date Last Done Comments Breast Cancer Screening 1972 Colorectal Cancer Screening: Colonoscopy 1972 Hepatitis B Vaccines (1 of 3 - 19+ 3-dose series) 10/17/1991 Cervical Cancer Screening: P ap Smear 1993 Pneumococcal Vaccine: 50+ Ye ars (1 of 1 - PCV) 2022 Zoster Vaccines (1 of 2) 2022 Depression Screening 04/08/2024 HIV Screening 06/17/2024 Hepatitis C Screening 06/17/2024 Social Influencers of Health Screening 06/17/2024 Hypertension/CHF/CAD Annual BMP Blood Test 08/27/2024 COVID-19 Vaccine (1 - 2024-2 6 season) 2024 Influenza Vaccine (#1) 2024 DTaP,Tdap,and Td Vaccines (2 - Td or Tdap) 04/19/2026 04/19/2016 Cholesterol Screening (Lipid Panel) 12/06/2027 12/05/2022 RSV Immunization Adult Patie nts (1 - 1-dose 75+ series) 10/17/2047 HIB Vaccines Aged Out No longer eligi ble based on patient's age to complete this topic HPV Vaccines Aged Out No longer eligi ble based on patient's age to complete this topic Hepatitis A Vaccines Aged Out No long er eligible based on patient's age to complete this topic IPV Vaccines Aged Out No longer eligi ble based on patient's age to complete this topic MMR Vaccines Aged Out No longer eligi ble based on patient's age to complete this topic Meningococcal ACWY Vaccine Aged Out N o longer eligible based on patient's age to complete this topic Meningococcal B Vaccine Aged Out No l onger eligible based on patient's age to complete this topic RSV Immunization Patients Un teofilo 20 months Aged Out No longer eligible b ased on patient's age to complete this topic Varicella Vaccines Aged Out No longer eligible based on patient's age to complete this topic Insurance [facility] Book Buyback PLANS Care Teams Insulating Machine Operator Relationship Specialty Start Date End Date Eduar Melton MD [address] [place] [address] PCP - General Internal Medicine 11/11/18
--- OUTSIDE RECORDS SUMMARY | 2025-03-20 10:41 | XMS_ITS | Clinical Summary ---
Author Organization [facility] Address [address] [address] Phone Care Team Providers Care Insecticide Maker Name Role Phone Unavailable Primary Care Provider Unavailabl e Social History Tobacco Use Types Packs/Day Years Used Date Smoking Tobacco: Never Assessed Education Answer Date Recorded Are you interested in more education? Not on adarsh e 02/06/2023 Are you concerned about learning? Not on file 02/06/2023 No 02/06/2023 No 02/06/2023 Digital Access Answer Date Recorded No 02/06/2023 No 02/06/2023 Reliable internet access at home? Not on file 02/06/2023 Device with a working camera? Not on file Comments Unknown Sex and Gender Information Value Date Recorded Sex Assigned at Not on file Legal Sex Female 9:31 PM EDT Gender Identity Not on file Sexual Orientation Not on file Plan of Treatment Health Maintenance Due Date Last Done Comments Adult Td,Tdap Booster 1972 LIPID PANEL 1972 DEPRESSION SCREENING 1984 SMOKING Hx and SMOKELESS TOB ACCO SCREENING 1985 HEPATITIS C SCREENING 1990 HIV ONE-TIME SCREENING (18-6 5 YEARS) 1990 PAP SMEAR 1993 MAMMOGRAM 2012 COLOGUARD 2017 COLONOSCOPY 2017 COLORECTAL CANCER SCREENING 2017 FIT TEST 2017 FOBT 2017 SIGMOIDOSCOPY 2017 VIRTUAL COLONOSCOPY 2017 PNEUMOCOCCAL VACCINES (50+ y ears) (1 of 1 - PCV) 2022 ZOSTER VACCINES (1 of 2) 2022 INFLUENZA VACCINE (#1) 2024 COVID-19 VACCINE ( - 2024-2 6 season) 2024 RSV VACCINE (1 - 1-dose 75+ series) 10/17/2047 HEPATITIS A VACCINES Aged Out No long er eligible based on patient's age to complete this topic HIB VACCINES Aged Out No longer eligi ble based on patient's age to complete this topic MENINGOCOCCAL VACCINES (ACWY) Aged Out No longer eligible based on patient's age to complete this topic MENINGOCOCCAL VACCINES (B) Aged Out N o longer eligible based on patient's age to complete this topic Medical Devices Not on file Additional Source Comments The information contained in this document represents components of the legal health record. It is not the complete legal health record.[facility]
--- OUTSIDE RECORDS SUMMARY | 2025-03-20 10:41 | XMS_ITS | Clinical Summary ---
Author Organization [employer] Address [address] [facility] [address] [place] [address] Care Team Providers Care Site Administrator Name Role Phone Eduar Melton MD Primary Care Provider [phone]- [phone] Allergies No known active allergies Medications * This document contains information received from the source organization and may not represent a complete record from that organization. Diclofenac Sodium 1 % gelIndications:L eft foot pain To apply to the affected area 3 times a day 100 g 1 11/29/19 23 Active Blood Pressure kitIndications:E levated BP without diagnosis of hypertension To check the BP daily 1 kit 11/29/19 23 Active buPROPion SR (Wellbutrin SR) 150 MG 12 hr tabletIndication s:Moderate episode of recurrent major depressive disorder (CMS/HCC) (HCC) Take 1 tablet (150 mg) by mouth 2 times daily. Do not crush, chew, or split. 60 tablet 11 12/06/19 23 Active guaiFENesin (Mucinex) 600 MG 12 hr tabletIndication s:Acute cough Take 2 tablets (1,200 mg) by mouth 2 times daily. Do not crush, chew, or split. 120 tablet 11 04/14/19 25 026 Active nicotine (Nicoderm CQ) 7 MG/24HR patchIndications :Smoking addiction Place 1 patch on the skin 1 (one) time each day at the same time. 30 patch 01/19/20 25 Active tiZANidine (Zanaflex) 4 MG tabletIndication s:Muscle spasm,Thoracic spondylosis,Lumb ar spondylosis Take 1 tablet (4 mg) by mouth every 6 (six) hours if needed for muscle spasms. 30 tablet 5 3:15 PM EST 03/19/20 25 025 Active meloxicam (Mobic) 15 MG tabletIndication s:Right hip pain,Muscle spasm,Lumbar spondylosis Take 1 tablet (15 mg) by mouth Once per day. 30 tablet 11 5 3:15 PM EST 03/19/20 25 026 Active amLODIPine (Norvasc) 5 MG tabletIndication s:Primary hypertension Take 1 tablet (5 mg) by mouth Once per day. 90 tablet 3 5 3:15 PM EST 03/19/20 25 026 Active losartan (Cozaar) 25 MG tabletIndication s:Primary hypertension Take 1 tablet (25 mg) by mouth Once per day. 90 tablet 3 5 3:15 PM EST 03/19/20 25 026 Active amLODIPine (Norvasc) 5 MG tabletIndication s:Primary hypertension Take 1 tablet (5 mg) by mouth Once per day. 30 tablet 11 5 9:52 AM EST 04/14/19 25 025 Discontinued(Re order (will not trigger notification to Pharmacy)) losartan (Cozaar) 25 MG tabletIndication s:Primary hypertension Take 1 tablet (25 mg) by mouth Once per day. 30 tablet 11 5 9:52 AM EST 06/01/19 25 025 Discontinued(Re order (will not trigger notification to Pharmacy)) tiZANidine (Zanaflex) 4 MG tabletIndication s:Muscle spasm,Thoracic spondylosis,Lumb ar spondylosis Take 1 tablet (4 mg) by mouth every 6 (six) hours if needed for muscle spasms for up to 10 days. 30 tablet 06/01/19 25 025 Discontinued(Re order (will not trigger notification to Pharmacy)) Active Problems Problem Noted Date Diagnosed Date Hypertension 12/05/2022 Stimulant use disorder 12/05/2022 Major depressive disorder 10/10/2016 Encounters Date Type Department Care Team Description 03/19/2025 2:30 PM EST Office Visit [facility] [address] [place] [address] Eduar Melton MD Right hip pain (Primary Dx); Muscle spasm; Thoracic spondylosis; Lumbar spondylosis; Primary hypertension; Primary hypertension 03/19/2025 Travel 03/19/2025 Telephone [facility] [address] [place] [address] Eduar Melton MD Nurse Triage 01/18/2025 10:00 AM EDT Office Visit [facility] [address] [place] [address] Eduar Melton MD Acute bacterial sinusitis (Primary Dx); Smoking addiction 01/18/2025 Travel 01/18/2025 Telephone [facility] [address] [place] [address] Eduar Melton MD Nurse Triage from Last 3 Months Family History Medical History Relation Name Comments Alcohol abuse Father Hypertension Father Hypertension Mother No Known Problems Paternal Grandfather Relation Name Status Comments Father Mother Paternal Grandfather Social History Tobacco Use Types Packs/Day Years Used Date Smoking Tobacco: Former Cigarettes 0.5 30 1 - 2012 Smokeless Tobacco: Never Tobacco Cessation:Counseling Given: No Comments:Currently vape: 6 mg of nicotine, 4 ml a day Depression [...] Orientation Straight 02/05/2022 10 :21 AM EDT Last Filed Vital Signs Vital Sign Reading Time Taken Comments Blood Pressure 116/66 03/19/2025 2:43 PM EST Pulse 66 03/19/2025 2:43 PM EST Temperature 36.8 C (98.3 F) 01/18/2025 10:18 AM EDT Respiratory Rate 20 03/19/2025 2:43 PM EST Oxygen Saturation 98% 03/19/2025 2:43 PM EST Inhaled Oxygen Concentration - - Weight 83.5 kg (184 lb) 03/19/2025 2:43 PM EST Height 152.4 cm (5') 03/19/2025 2:43 PM EST Body Mass Index 35.94 03/19/2025 2:43 PM EST Plan of Treatment Health Maintenance Due Date Last Done Comments CT Colonography 1972 Colonoscopy 1972 Colorectal Cancer Screening 1972 FIT DNA/Cologuard 1972 FIT 1972 FOBT 1972 HIV Screening 1972 SDOH Screening 1972 Sigmoidoscopy 1972 Disability Screening 1972 Alcohol/Substance Use Screening 1984 Family Planning (PISQ) 10/17/1987 Hepatitis C Screening 1990 Hepatitis B Vaccines (1 of 3 - 19+ 3-dose series) 10/17/1991 Pap Smear 1993 Cervical Cancer Screening 2002 HPV/Cotest 2002 Mammogram 2012 Pneumococcal Vaccine: 50+ Years (1 of 1 - PCV) 2022 Zoster Vaccines (1 of 2) 2022 Depression Monitoring 06/06/2023 12/05/2022 , 12/05/2022 COVID-19 Vaccine (1 - 2024-2 6 season) 2024 Influenza Vaccine (#1) 2024 Tobacco Screening 03/19/2026 03/19/2025 DTaP/Tdap/Td Vaccines (2 - T d or Tdap) 04/19/2026 04/19/2016 Lipid Panel 12/06/2027 12/05/2022 RSV Patients and Patients Aged 60 years or older (1 - 1-dose 75+ series) 10/17/2047 HIB [...] patient's age to complete this topic Meningococcal Vaccine Aged Out No sidra raquel eligible based on patient's age to complete this topic RSV under 20 months Aged Out No longe r eligible based on patient's age to complete this topic Rotavirus Vaccines Aged Out No longer eligible based on patient's age to complete this topic Procedures Procedure Name Priority Date/Time Associated Diagnosis Comments POCT RAPID COVID ANTIGEN Routine 01/18/2025 11:53 AM EDT Acute bacterial sinusitis POCT INFLUENZA A Routine 01/18/2025 11:5 2 AM EDT Acute bacterial sinusitis POCT INFLUENZA B Routine 01/18/2025 11:5 1 AM EDT Acute bacterial sinusitis POCT RAPID STREP A Routine 01/18/2025 11 :50 AM EDT Acute bacterial sinusitis LIPID PANEL, STANDARD Routine 12/05/2022 12:40 PM EDT Elevated BP without diagnosis of hypertension from Last 3 Months or Most Recently Relevant to Health Maintenance Results * POCT Rapid Covid-19 BinaxNOW (01/18/2025 11:53 AM EDT) [facility] Rapid COVID Ag Negative QC Media Lot # [id number] Comment:controls passed Lot# Expiration Date [id number] Swab 01/18/2025 11:5 3 AM EDT Eduar Melton MD POINT OF CARE TEST ENTER/ED IT ORDERABLES Final Result * POCT Rapid Influenza A OSOM (01/18/2025 11:52 AM EDT) [facility] Rapid Influenza A Ag Negative Negative, Indeterminate QC Media Lot # [id number] Lot# Expiration Date [id number] Comment:controls passed Swab Nasopharyngeal structure / Unknown 01/18/2025 11:52 AM EDT Eduar Melton MD POINT OF CARE TEST ENTER/ED IT ORDERABLES Final Result * POCT Rapid Influenza B OSOM (01/18/2025 11:51 AM EDT) [facility] Rapid Influenza B Ag Negative Negative, Indeterminate QC Media Lot # [id number] Comment:controls passed Lot# Expiration Date [id number] Swab 01/18/2025 11:5 1 AM EDT Eduar Melton MD POINT OF CARE TEST ENTER/ED IT ORDERABLES Final Result * POCT Rapid Strep A OSOM (01/18/2025 11:50 AM EDT) Pathologist [facility] Rapid Strep A Screen Negative Negative, None Detected QC Media Lot # [id number] Lot# Expiration Date [id number] Comment:controls passed Swab 01/18/2025 11:5 0 AM EDT Eduar Melton MD POINT OF CARE TEST ENTER/ED IT ORDERABLES Final Result * (ABNORMAL) Lipid Panel, Standard (12/05/2022 12:40 PM EDT) [facility] Triglycerides 100 <150 mg/dL [facility] Comment:Desirable Triglyceri de: less than 150 mg/dLBorderline High Triglyceride 150-199 mg/dLHigh Triglyceride: 200-499 mg/dLVery High Triglyceride: greater than or equal to 5OO mg/dL Cholesterol 192 <200 mg/dL [facility] Comment:Desirable Cholestero l: less than 200 mg/dLBorderline High Cholesterol: 200-239 mg/dLHigh Cholesterol: greater than 239 mg/dL LDL Cholesterol Calculated 117(H) <100 mg/dL [facility] Comment:Desirable LDL: less than 100 mg/dLNear Optimal/Above Optimal LDL: 110- 129 mg/dLBorderline High LDL: 130-159 mg/dLHigh LDL: 160-189 mg/dLVery High LDL: greater than or equal to 190 mg/dL HDL Cholesterol 55 >40 mg/dL [facility] Comment:Desirable HDL: great er than 40 mg/dL Note: This HDL assay may give artificially low results in patients with liver disease. Blood Venous blood specimen / Unknown 12/05/2022 12:40 PM EDT 12/05/2022 3:39 PM EDT Eduar Melton MD LAB BLOOD ORDERABLES Final Result [facility] [address] [place] [address] [phone] from Last 3 Months or Most Recently Relevant to Health Maintenance Insurance [facility] Care Teams Site Administrator Relationship Specialty Start Date End Date Eduar Melton MD [address] [place] [id number] PCP - General Internal Medicine 04/08/18
--- OUTSIDE RECORDS SUMMARY | 2025-03-20 10:41 | XMS_ITS | Clinical Summary ---
Author Organization [facility] Address [address] [place] [address] Care Team Providers Care Lead Warehouse Associate Name Role Phone Unavailable Primary Care Provider Unavailabl e Social History Tobacco Use Types Packs/Day Years Used Date Smoking Tobacco: Never Assessed Comments Unknown Sex and Gender Information Value Date Recorded Sex Assigned at Not on file Legal Sex Female 1:24 PM EDT Gender Identity Not on file Sexual Orientation Not on file Plan of Treatment Health Maintenance Due Date Last Done Comments Hepatitis C Virus Screening 1972 HIV Screening 1985 DTaP/Tdap/Td Vaccines (1 - Tdap) 10/17/1991 Hepatitis B Vaccines (1 of 3 - 19+ 3-dose series) 10/06 Pneumococcal Vaccines 50+ (1 of 1 - PCV) 2022 Zoster (Shingles) Vaccine (1 of 2) 2022 COVID-19 Vaccine (1 - 2024- season) 2024 RSV Vaccine 50 years and old er and Patients (1 - 1-dose 75+ series) 10/17/2047
--- OUTSIDE RECORDS SUMMARY | 2025-03-20 10:41 | XMS_ITS | Encounter Summary ---
Author Organization [employer] Address [address] [facility] [address] [place] [address] Care Team Providers Care Advertising Material Distributor Name Role Phone Eduar Melton MD Primary Care Provider [phone]- [phone] Reason for Visit * Reason Onset Date Comments Nurse Triage 03/19/2025 Encounter Details Date Type Department Care Team ([facility] st Contact Info) Description 03/19/2025 Telephone [facility] [address] [place], [place] [id number] Eduar Melton MD [address] [place] [address] Nurse Triage Social History Tobacco Use Types Packs/Day Years [...] AM EDT documented as of this encounter Miscellaneous Notes * Telephone Encounter - Maricruz Vaughan RN - 03/19/2025 10:00 AM EST TC placed to patient. Patient reported constant right hip pain and difficulty ambulating x 2 months. Denies any injury to the site. Patient reported she wants to be seen by a provider for further evaluation and a possible referral to physical therapy. RN scheduled an appt with patient provider for 03/19/25 at 230 pm. Patient agreed to the appt. RN advised patient if her symptoms worsen prior to her appt to go to the ED for further evaluation. Patient to F/U PRN. Protocol Used: Hip Pain (Adult) Protocol-Based Disposition: See in Office or Video Visit Today or Tomorrow Video visit offer not recorded Positive Triage Questions: * Patient wants to be seen * Moderate pain (e.g., interferes with normal activities, limping) and present > 3 days * Hip pain * All higher-acuity triage questions were negative. Care Advice Discussed: * Reassurance and Education - Hip Pain * Pain Medicines * Pain Medicines - Extra Notes and Warnings * Rest Your Hip for the Next Couple Days * Reasons To Call Back - Moderate pain (such as limping) lasts more than 3 days - Mild pain lasts more than 7 days - Signs of infection occur (such as spreading redness, warmth, fever) - You become worse * Telephone Encounter - Adryan Dumont - 03/19/2025 9:00 AM EST Symptom: Hip Pain - Not From Injury Outcome: Schedule an urgent appointment (within 1 hour) or talk to a nurse or provider soon Reason: Severe pain now The caller accepted this outcome. Contact pt at [phone] documented in this encounter Plan of Treatment Not on file documented as of this encounter Visit Diagnoses Not on filedocumented in this encounter Additional Health Concerns Assessment Noted Time PHQ-9 Depression Total Score: 16 023 11:23 AM EDT documented as of this encounter Care Teams Advertising Material Distributor Relationship Specialty Start Date End Date Eduar Melton MD [address] [place] [id number] PCP - General Internal Medicine 04/08/18 documented as of this encounter
--- OUTSIDE RECORDS SUMMARY | 2025-03-20 10:41 | XMS_ITS | Encounter Summary ---
Author Organization [employer] Address [address] [facility] [address] [place] [address] Care Team Providers Care Straight Pin Making Machine Operator Name Role Phone Eduar Melton MD Primary Care Provider [phone]- [phone] Encounter Details Date Type Department Care Team ([facility] st Contact Info) Description 01/01/2023 Orders Only [facility] [address] [place], [place] [phone] Eduar Melton MD [address] [place] [address] Encounter for screening colonoscopy Social History Tobacco Use Types Packs/Day Years Used Date Smoking Tobacco: Former Cigarettes 0.5 30 1 2012 Smokeless Tobacco: Never Comments:Currently vape: 6 [...] as of this encounter Visit Diagnoses Diagnosis Encounter for screening colonoscopy documented in this encounter Additional Health Concerns Assessment Noted Time PHQ-9 Depression Total Score: 16 12/05/ 023 11:23 AM EDT documented as of this encounter Care Teams Straight Pin Making Machine Operator Relationship Specialty Start Date End Date Eduar Melton MD [address] [place], [place] [address], [place] [address] PCP - General Internal Medicine 04/08/18 documented as of this encounter
--- OUTSIDE RECORDS SUMMARY | 2025-03-20 10:41 | XMS_ITS | Encounter Summary ---
Author Organization [employer] Address [address] [facility] [address] [place] [address] Care Team Providers Care Site Engineer Name Role Phone Eduar Melton MD Primary Care Provider +1- [phone] Encounter Details Date Type Department Care Team (Latest Contact Info) Description 03/19/2025 Travel Social History Tobacco Use Types Packs/Day Years [...] documented as of this encounter Care Teams Site Engineer Relationship Specialty Start Date End Date Edura Melton MD [address] [place] [address] PCP - General Internal Medicine 04/08/18 documented as of this encounter
== END 2025-03-20 10:39 | disposition home or self-care (01) ==
LOC: HO.XRAY 10:38
PROVIDERS: PCP Internal Medicine; Visit Provider Internal Medicine
DX: M25.551 Pain in right hip (principal)
CPT/HCPCS: 73502

== ENCOUNTER → 2025-03-20 10:43 | Outpatient (BNV) | payer OTHER, SELFPAY | PROVIDERS: PCP Internal Medicine; Visit Provider Radiology Diagnostic Ultrasound | DX: M25.551 Pain in right hip (principal) | CPT/HCPCS: 73502 ==